=== PATIENT | male | born 1940 | race Caucasian/White ===

== ENCOUNTER 2022-08-12 13:46 | Outpatient (CLI) | payer MEDICARE, SELFPAY ==
--- OUTSIDE RECORDS SUMMARY | 2022-08-15 14:40 | XMS_ITS | Clinical Summary ---
:1940 Author Organization [facility] [place] [address] Care Team Providers Name Role Phone Reginald Daniels MD Primary Care Provider [phone] Allergies No known active allergies Medications Medication [...] Name Administration Dates Next Due COVID-19 vaccine (DocuSign 30mcg/0.3mL) PF, 1, 12/29/2020 MDV Influenza, Inactivated [...] Visit Reginald Daniels MD [address] [place] [address] (Wo rk) Health Maintenance Due [...] Type Group [employer] GOLD MR HU[employer] CHOICE [id number] 2020-Present [address] [address] PPO [employer] JONES [phone] Care Teams Photograph Tinter Relationship Specialty Start Date End Date Reginald Daniels MD PCP - General 06/25/[address] [place] [address]
== END 2022-08-12 13:47 | disposition home or self-care (01) ==
LOC: NFLDREF 08-15 14:38
PROVIDERS: PCP Family Medicine; Visit Provider Registered Nurse
DX: N39.0 Urinary tract infection, site not specified (principal)
CPT/HCPCS: 87086

== ENCOUNTER 2022-08-13 11:22 | Emergency (ER) | payer MEDICARE, SELFPAY ==
[2022-08-13 11:46] VITALS: BP 157/76; PULSE 68; RESP 18; TEMP 36.4; O2SAT 97; BMI 30.3
--- NOTE | 2022-08-13 13:32 | ED.GENADULT ---
HPI - General Adult General Chief complaint: Urogenital Problems, Male Stated complaint: Blood in urine Time Seen by Provider: 08/13/22 13:10 History of Present Illness HPI narrative: Patient is an 82 year old male who for the past week has had gross hematuria. He was seen in urgent care yesterday and had a UA which showed greater than 100 red cells, no white cells. He was started on Cipro at the time, and says he was told to come in if the bleeding got worse. He came in today because he feels like the bleeding is worse, he is now passing some clots. He does not take any blood thinners. He has not had any back or abdominal pain. He has not had any urinary retention. He has an appointment with his primary doctor Dr. Daniels next . He has not had any prostate problems that he is aware of. No history of renal or bladder cancer. Related Data Home Medications Medication Instructions Recorded Confirmed amlodipine 10 mg tablet 10 mg PO QDAY 08/12/22 08/12/22 aspirin 81 mg tablet,delayed 81 mg PO QDAY 08/12/22 08/12/22 release hydrochlorothiazide 25 mg tablet 25 mg PO QDAY 08/12/22 08/12/22 lisinopril 40 mg tablet 40 mg PO QDAY 08/12/22 08/12/22 Previous Rx's Medication Instructions Recorded ciprofloxacin HCl 500 mg tablet 500 mg PO BID 7 days #14 tabs 08/12/22 Allergies Allergy/AdvReac Type Severity Reaction Status Date / Time No Known Allergies Allergy Unverified 08/12/22 13:47 Review of Systems Status of ROS: Reports: 6 or more systems reviewed and unremarkable except as noted in History and below PFSH [facility] Social History Smoking Status: Never smoker Do you use any of these nicotine containing products: None Second hand tobacco smoke exposure: Yes How often do you have a drink containing alcohol: never How often do you have six or more drinks on one occasion: Never AUDIT-C Alcohol total score: 0 Non-prescribed substance use: denies use service: No Exam Narrative: Exam Narrative: Vital signs reviewed In general, an alert, well-appearing elderly male. Abdomen soft and nontender. Back: No CVA tenderness. Skin: Warm dry well perfused. Const: Vital Signs, click to edit/add: Vital Signs - 24 hr 08/13/22 11:46 Temperature 97.6 F Pulse Rate [Pulse Oximeter] 68 Respiratory Rate 18 Blood Pressure [Ri ght Upper Arm] 157/76 H Pulse Oximetry 97 Oxygen Delivery Me thod Room Air Documenting provider has reviewed patient's vital signs: yes Course Course Hospital Course: We had a long chat about his symptoms. I reviewed his UA from yesterday and again today. He does not have any white blood cells, he was started on Cipro yesterday and I think overall he really does not need to be on an antibiotic. I think the risks of being on Cipro outweigh any benefit. I have suggested that he discontinue that medication. They did do a urine culture yesterday, and on the off chance that he develops urinary symptoms and the urine culture grows out a bacteria we can address it at that time. We discussed that there is not really a specific treatment for this at this time. If he develops urinary retention we will address that as needed. I offered imaging in the form of CT scan if he wanted to do that today, but he is comfortable holding off until he sees Dr. Daniels and likely Urology. I think that is reasonable. He should return if he develops urinary retention, otherwise follow-up with Dr. Daniels. Vital Signs Vital signs: Initial Vital Signs Temperature 97.6 F 08/13/22 11:46 Temperature Source Temporal Artery Scan 08/13/22 11:46 Pulse Rate 68 08/13/22 11:46 Respiratory Rate 18 08/13/22 11:46 Blood Pressure 157/76 H 08/13/22 11:46 Blood Pressure Mean 103 08/13/22 11:46 Blood Pressure Position Supine 08/13/22 11:46 Pulse Oximetry 97 08/13/22 11:46 Oxygen Delivery Method 08/13/22 11:46 Vital Signs Temperature 97.6 F 08/13/22 11:46 Pulse Rate 68 08/13/22 11:46 Respiratory Rate 18 08/13/22 11:46 Blood Pressure 157/76 H 08/13/22 11:46 Pulse Oximetry 97 08/13/22 11:46 Oxygen Delivery Method 08/13/22 11:46 Temperature 97.6 F 08/13/22 11:46 Pulse Rate 68 08/13/22 11:46 Respiratory Rate 18 08/13/22 11:46 Blood Pressure 157/76 H 08/13/22 11:46 Pulse Oximetry 97 08/13/22 11:46 Oxygen Delivery Method 08/13/22 11:46 Medical Decision Making Lab Data Labs: Lab Results 08/13/22 Range/Units 13:05 Urine Color Red A (Yellow) Urine Appearance Turbid A (Clear) Urine pH 6.5 (5.0-8.5) Ur Specific [place] 1.015 (1.000-1.030) Urine Protein 3+ A (Negative) Urine Glucose (UA) Negative (Negative) Urine Ketones Negative (Negative) Urine Blood 3+ A (Negative) Urine Nitrite Negative (Negative) Urine Bilirubin Negative (Negative) Urine Urobilinogen 0.2 (0.2-1.0) Ur Leukocyte Esterase Negative (Negative) Urine RBC >100 A (0-2) Urine WBC 0-2 (0-5) Ur Squamous Epith Cells None (None-Few) Urine Bacteria None (None) Discharge Plan Discharge Clinical Impression: Painless hematuria Patient Disposition: Home, Self-Care Condition: Stable Instructions: Hematuria (ED) Additional Instructions: Follow-up with Dr. Daniels as planned. I would recommend that you discontinue the Cipro for now based on yesterday's urinalysis. The UA from today is still pending, if I feel differently after seeing today's results I will call you. Make sure to stay well hydrated. If you have problems with urinary retention, return to the ER. Prescriptions: No Action lisinopril 40 mg tablet 40 mg PO QDAY hydrochlorothiazide 25 mg tablet 25 mg PO QDAY amlodipine 10 mg tablet 10 mg PO QDAY aspirin 81 mg tablet,delayed release (DR/EC) 81 mg PO QDAY ciprofloxacin HCl 500 mg tablet 500 mg PO BID 7 Days Qty: 14 0RF Follow Up/Referrals: Reginald Daniels MD [Primary Care Provider] - Stand Alone Forms: [employer] Info Instructions
--- OUTSIDE RECORDS SUMMARY | 2022-08-13 13:42 | XMS_ITS | Clinical Summary ---
:1940 Author Organization [facility] [place] [address] Care Team Providers Name Role Phone Reginald Daniels MD Primary Care Provider [phone] Allergies No known active allergies Medications Medication Sig Dispensed Refills Start Date End Date Status ASPIRIN 325 MG TAB, take 1 po 0 06/25/2008 Active DELAYED RELEASE daily Cholecalciferol, Vitamin Take 1 0 04/25/2014 Active D3, (VITAMIN D-3) 2,000 tablet by unit tablet mouth once daily. zinc 15 mg tablet Take 15 mg 0 04/25/2014 Active by mouth 2 times daily. omeprazole (PRILOSEC) 10 Take 1 0 11/30/2015 Active mg capsule capsule by mouth once daily before a meal. amLODIPine (NORVASC) 10 TAKE ONE 30 Tablet 0 08/10/2022 Active mg tabletIndications: TABLET BY Hypertension, MOUTH EVERY unspecified type DAY lisinopriL (PRINIVIL; TAKE ONE 30 Tablet 0 08/10/2022 Active ZESTRIL) 40 mg TABLET BY tabletIndications: MOUTH EVERY Hypertension, DAY unspecified type hydroCHLOROthiazide TAKE ONE 30 Tablet 0 08/10/2022 Active (HCTZ) 25 mg TABLET BY tabletIndications: MOUTH EVERY Hypertension, DAY unspecified type amLODIPine (NORVASC) 10 Take 1 90 Tablet 3 08/06/202108/10 Discontinued mg tabletIndications: Tablet (10 22 Hypertension, mg) by mouth unspecified type once daily. hydroCHLOROthiazide Take 1 90 Tablet 3 08/06/2021 08/10/20 Discontinued (HCTZ) 25 mg Tablet (25 22 tabletIndications: mg) by mouth Hypertension, once daily. unspecified type lisinopriL (PRINIVIL; Take 1 90 Tablet 3 08/06/2021 0 Discontinued ZESTRIL) 40 mg Tablet (40 22 tabletIndications: mg) by mouth Hypertension, once daily. 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 Impaired fasting glucose Resolved Problems Problem Noted Date Resolved Date Stress / with dementia 07/19/2017 08/05/2020 Vitamin D insufficiency 03/18/2015 08/05/2019 Encounters Date Type Specialty Care Team Description 08/09/2022 Refill Reginald Daniels MD Refill Request (Amlodipine, Lisinopril, Hydrochlorothia zide) from Last 3 Months Immunizations Name Administration Dates Next Due COVID-19 vaccine (Equidate 30mcg/0.3mL) PF, 1, 12/29/2020 MDV Influenza, Inactivated AIIV4 (Age 65+ Years) Preserv 021, 08/05/2020 Free Influenza, Inactivated IIV3 (Age 65+ Years) Preserv 08/05/20 19, 08/01/2018 Free Pneumococcal Poly,23-Valent (Pneumovax) 08/05/2019 Pneumococcal conj 13-Valent (Prevnar 13) 08/01/2018 Zoster (Shingrix-RZV, recombinant) 09/28/2020, 07/23/2020 Family History Medical History Relation Name Comments Good Health Father Good Health Mother Cancer-colon Neg. 1 Cancer-prostate Neg. 2 Diabetes Neg. 3 Relation Name Status Comments Father Mother Neg. 1 Neg. 2 Neg. 3 Social History Tobacco Use Types Packs/Day Years Used Date Former Smoker Quit: 11/13/18 78 Smokeless Tobacco: Never Used Tobacco Cessation: Counseling Given: Yes Alcohol Use Standard Drinks/Week Comments Yes 0 (1 standard drink = 0.6 oz pure alcoho l) occasional Alcohol Habits Answer Date Recorded How often do you have a drink containing alcohol? Not asked How many drinks containing alcohol do you have on a typical Not asked day when you are drinking? How often do you have six or more drinks on one occasion? No t asked Comment: occasional 06/25/2008 Sex Assigned at Date Recorded Not on file Obstetrics History Last Filed Vital Signs Vital Sign Reading Time Taken Comments Blood Pressure 153/82 08/06/2021 7:58 AM CDT Pulse 72 08/06/2021 7:58 AM CDT Temperature 36.8 ??C (98.2 ??F) 08/05/2020 7:56 AM CDT Respiratory Rate - - Oxygen Saturation 98% 08/06/2021 7:58 AM CDT Inhaled Oxygen Concentration - - Weight 94.9 kg (209 lb 3.2 oz) 08/06/2021 7:58 AM CDT Height 177.8 cm (5' 10) 08/06/2021 7:58 AM CDT Body Mass Index 30.02 08/06/2021 7:58 AM CDT Plan of Treatment Upcoming Encounters Date Type Specialty Care Team Description 08/18/2022 Office Visit Reginald Daniels MD [address] [place] [address] (Wo rk) Health Maintenance Due Date Last Done Comments Tdap 01/25/1951 COVID-19 vaccine series (3 - 06/21/2021 01/19/2021, 021 Booster for Pfizer series) Tetanus booster 11/22/2021 11/22/2011 (Declined) Influenza for age 65+ 07/14/2022 08/06/2021, 08/05/2020, 08/05/2019, Additional history exists BMI (ht and wt on same day) for 08/06/2022 08/06/2021, 07/15, age 18+ 08/05/2019, Additional history exists Depression screening for age 12+ 08/06/2022 08/06/2021, , 07/19/2017, Additional history exists Medicare Wellness for age 65+ 08/06/2022 08/06/2021, 2016, 01/18/2013 Pneumococcal series for age 65+ Completed 08/05/2019, 07/14 Zoster (shingles) series for age Completed 09/28/2020, 08/2020 50+ Results Not on filefrom Last 3 Months Insurance Payer Benefit Plan / Subscriber ID Effective Dates Phone Addre ss Type Group HU[employer] GOLD MR HU[employer]NA CHOICE [id number] 2020-Present [address] [address] PPO STEFF[employer]IE JONES [phone] Care Teams Furniture 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
[2022-08-13 14:11] LABS: Appearance Urine Turbid (Clear); Bilirubin Urine Negative (Negative); Blood Urine 3+ (Negative); Color Urine Red (Yellow); Glucose Urine Negative (Negative); Ketones Urine Negative (Negative); Leukocyte Esterase Urine Negative (Negative); Nitrite Urine Negative (Negative); Protein Urine 3+ (Negative); Specific Gravity Urine 1.015 (1.000-1.030); Urobilinogen Urine 0.2 (0.2-1.0); pH Urine 6.5 (5.0-8.5)
[2022-08-13 14:12] LABS: RBC Urine >100 (0-2); WBC Urine 0-2 (0-5)
== END 2022-08-13 14:01 | disposition home or self-care (01) ==
LOC: ED 13:40
PROVIDERS: Emergency Provider Emergency Medicine; PCP Family Medicine
DX: R31.0 Gross hematuria (principal)
CPT/HCPCS: 81001; 87086; 99283

== ENCOUNTER 2022-12-23 09:55 | Emergency (ER) | payer MEDICARE, SELFPAY ==
[2022-12-23 10:00] VITALS: BP 129/77; PULSE 91; RESP 18; TEMP 36.4; O2SAT 97; BMI 28.4
--- NOTE | 2022-12-23 10:55 | ED.NURSE ---
Accessed the [facility] and was easy able to draw the labs and waste per protocol. infusing 500cc of 0.9% normal saline bolus now. Bladder scanner completed shows only 5 cc after 4 attempts. given a urinal at bedside and is aware needs to collect a urine sample.
[2022-12-23 11:07] LABS: Lactate* 0.5 mmol/L (0.5-1.9)
[2022-12-23 11:09] LABS: Hematocrit 29.8 % (37.0-53.0); Hemoglobin* 10.1 gm/dL (13.5-17.5); Immature Granulocytes Pct Auto 0.4 %; Lymphocytes Percent Auto 42.9 % (20-44); Mean Corpuscular HGB Conc 34 gm/dL (32-36); Mean Corpuscular Hemoglobin 32 pg (26-34); Mean Corpuscular Volume 96 fL (80-100); Monocytes Percent Auto 2.2 % (0.0-11.0); Neutrophils Percent Auto 54.5 % (42.0-72.0); Platelet Count* 95 K/uL (140-440); RDW Coefficient of Variation % 12.1 % (11.5-15.5); Red Blood Count 3.12 m/uL (4.30-5.90); White Blood Count* 2.73 K/uL (4.50-11.00)
[2022-12-23 11:13] LABS: Slide Review Reflex No
--- NOTE | 2022-12-23 11:14 | ED.GENADULT ---
HPI - General Adult General Chief complaint: Nausea/Vomiting Stated complaint: Vomiting, weak, dizzy Time Seen by Provider: 12/23/22 10:13 Source: patient Mode of arrival: ambulatory Limitations: no limitations History of Present Illness HPI narrative: 82-year-old male coming in today with nausea and vomiting. Patient is getting chemotherapy for bladder cancer and his last session was 1 week ago. Vomiting and nausea started this morning. Patient states that he can't even look at water. He states he has vomited a couple of times today and also had 2 episodes of watery diarrhea. He denies chest pain. He does have chronic suprapubic discomfort which is not new for him since his diagnosis of cancer. He does urinate a little bit every 20 minutes or so and this is not unusual. He was supposed to get another session of chemotherapy today but he was sent to the ER for evaluation. He denies headache, dizziness. Related Data Home Medications Medication Instructions Recorded Confirmed amlodipine 10 mg tablet 10 mg PO QDAY 08/12/22 08/12/22 aspirin 81 mg tablet,delayed 81 mg PO QDAY 08/12/22 08/12/22 release hydrochlorothiazide 25 mg tablet 25 mg PO QDAY 08/12/22 08/12/22 lisinopril 40 mg tablet 40 mg PO QDAY 08/12/22 08/12/22 Previous Rx's Medication Instructions Recorded ondansetron HCl 4 mg tablet 4 mg PO TID PRN nausea and 12/23/22 vomiting #10 tabs Allergies Allergy/AdvReac Type Severity Reaction Status Date / Time No Known Allergies Allergy Unverified 08/12/22 13:47 Review of Systems Status of ROS: Reports: 10 or more systems reviewed and unremarkable except as noted in History and below [facility] Social History Smoking Status: Never smoker Do you use any of these nicotine containing products: None Second hand tobacco smoke exposure: Yes How often do you have a drink containing alcohol: never How often do you have six or more drinks on one occasion: Never AUDIT-C Alcohol total score: 0 Non-prescribed substance use: denies use service: No Exam Narrative: Exam Narrative: Well-nourished well-developed patient in no acute distress. Alert and oriented. Answers questions appropriately. Mood and affect are appropriate. Thoughts are goal oriented and rational. No tangential or magical thinking noted. Patient speaks in full sentences without needing to catch their breath. HEENT: Normocephalic atraumatic. Pupils are equally round reactive to light. Extraocular muscles are intact. Conjunctivae are moist without any icterus noted. Moist mucous membranes. Posterior pharynx is normal. Neck is soft without any lymphadenopathy or thyromegaly. No masses are appreciated. Cardiovascular: Heart is regular rate and rhythm S1 and S2 are present without any murmurs. Lungs: Clear to auscultation bilaterally no wheezes rhonchi or rales are appreciated. Patient takes deep breaths without any discomfort. Abdomen: Soft and nondistended. Slightly protuberant. hyperactive bowel sounds. Mild suprapubic discomfort. Extremities: Bilateral lower extremities are without edema. Skin: Well perfused without any obvious rashes. Const: Vital Signs, click to edit/add: Vital Signs - 24 hr 12/23/22 10:00 Temperature 97.6 F Pulse Rate [Right Pulse Oximeter] 91 Respiratory Rate 18 Blood Pressure [Ri ght Upper Arm] 129/77 Pulse Oximetry 97 Oxygen Delivery Me thod Room Air Course Course Hospital Course: Patient received 500 mL normal saline and Zofran and felt significantly better. He had no vomiting or diarrhea while he was in the ER today. His blood work did show pancytopenia, urinalysis was not too different from his previous UAs, he did have wbc's present today however. CRP was also elevated at 5.7. Creatinine also slightly elevated, I do not have a previous 1 to compare it to. Vital Signs Vital signs: Initial Vital Signs Temperature 97.6 F 12/23/22 10:00 Temperature Source Temporal Artery Scan 12/23/22 10:00 Pulse Rate 91 12/23/22 10:00 Respiratory Rate 18 12/23/22 10:00 Blood Pressure 129/77 12/23/22 10:00 Blood Pressure Mean 94 12/23/22 10:00 Blood Pressure Position Sitting 12/23/22 10:00 Pulse Oximetry 97 12/23/22 10:00 Oxygen Delivery Method 12/23/22 10:00 Vital Signs Temperature 97.6 F 12/23/22 10:00 Pulse Rate 91 12/23/22 10:00 Respiratory Rate 18 12/23/22 10:00 Blood Pressure 129/77 12/23/22 10:00 Pulse Oximetry 97 12/23/22 10:00 Oxygen Delivery Method 12/23/22 10:00 Temperature 97.6 F 12/23/22 10:00 Pulse Rate 91 12/23/22 10:00 Respiratory Rate 18 12/23/22 10:00 Blood Pressure 129/77 12/23/22 10:00 Pulse Oximetry 97 12/23/22 10:00 Oxygen Delivery Method 12/23/22 10:00 Medical Decision Making [facility] Narrative Medical decision making narrative: 82-year-old male, presenting with nausea, vomiting and diarrhea, currently undergoing chemotherapy for bladder cancer. Feeling significantly better after fluids and Zofran. Certainly this could represent a gastroenteritis verses UTI versus side effects from chemotherapy. At this time patient will be sent home with follow-up recommendation. If his symptoms get worse I do want him to return to the ER. Will also wait for his urine culture to come back, if it is positive will go ahead and start him on antibiotic treatment. Patient and his children were agreeable with this plan. Lastly, there is confusion about when he is supposed take his medications. His daughter states that she will attempt to handle this going forward. Lab Data Lab results reviewed: Yes I reviewed the patient's lab results Labs: Lab Results 12/23/22 12/23/22 12/23/22 Range/Units 10:55 10:55 10:55 WBC 2.73 L (4.50-11.00) K/uL RBC 3.12 L (4.30-5.90) m/uL Hgb 10.1 L (13.5-17.5) gm/dL Hct 29.8 L (37.0-53.0) % MCV 96 (80-100) fL MCH 32 (26-34) pg MCHC 34 (32-36) gm/dL RDW Coeff of Venkata 12.1 (11.5-15.5) % Plt Count 95 L (140-440) K/uL Neut % (Auto) 54.5 (42.0-72.0) % Lymph % (Auto) 42.9 (20-44) % Johnston % (Auto) 2.2 (0.0-11.0) % Eos % (Auto) 0.0 (0.0-7.0) % Baso % (Auto) 0.0 (0.0-3.0) % Neut # (Auto) 1.50 L (1.7-7.0) K/uL Lymph # (Auto) 1.20 (0.90-2.90) K/uL Johnston # (Auto) 0.10 (0.00-0.90) K/UL Eos # (Auto) 0.00 (0.00-0.50) K/uL Baso # (Auto) 0.00 (0.00-0.30) K/uL Sodium 135 (135-149) mmol/L Potassium 4.7 (3.6-5.1) mmol/L Chloride 106 (96-114) mmol/L Carbon Dioxide 25 (20-32) mmol/L BUN 35 H (7-30) mg/dL Creatinine 1.7 H (0.5-1.5) mg/dL Estimated Creat Clear 34.59 Estimated GFR 40 ml/min Glucose 110 (60-115) mg/dL Lactate 0.5 (0.5-1.9) mmol/L Calcium 9.1 (8.4-10.6) mg/dL Total Bilirubin 0.5 (0.1-1.5) mg/dL Direct Bilirubin 0.2 (0.0-0.5) mg/dL AST 19 (12-35) U/L ALT 24 (4-50) U/L Alkaline Phosphatase 68 (40-150) U/L C-Reactive Protein 5.7 H (0.5-1.0) mg/dL Total Protein 6.8 (6.0-8.3) g/dL Albumin 4.0 (3.3-5.0) g/dL Lipase 143 (23-300) U/L Urine Color (Yellow) Urine Appearance (Clear) Urine pH (5.0-8.5) Ur Specific [place] (1.000-1.030) Urine Protein (Negative) Urine Glucose (UA) (Negative) Urine Ketones (Negative) Urine Blood (Negative) Urine Nitrite (Negative) Urine Bilirubin (Negative) Urine Urobilinogen (0.2-1.0) Ur Leukocyte Esterase (Negative) Urine RBC (0-2) Urine WBC (0-5) Ur Squamous Epith Cells (None-Few) Urine Bacteria (None) SARS-CoV-2 (PCR) (Negative) Influenza Type A (PCR) (Negative) Influenza Type B (PCR) (Negative) 12/23/22 12/23/22 Range/Units 10:55 12:12 WBC (4.50-11.00) K/uL RBC (4.30-5.90) m/uL Hgb (13.5-17.5) gm/dL Hct (37.0-53.0) % MCV (80-100) fL MCH (26-34) pg MCHC (32-36) gm/dL RDW Coeff of Venkata (11.5-15.5) % Plt Count (140-440) K/uL Neut % (Auto) (42.0-72.0) % Lymph % (Auto) (20-44) % [place] % (Auto) (0.0-11.0) % Eos % (Auto) (0.0-7.0) % Baso % (Auto) (0.0-3.0) % Neut # (Auto) (1.7-7.0) K/uL Lymph # (Auto) (0.90-2.90) K/uL [place] # (Auto) (0.00-0.90) K/UL Eos # (Auto) (0.00-0.50) K/uL Baso # (Auto) (0.00-0.30) K/uL Sodium (135-149) mmol/L Potassium (3.6-5.1) mmol/L Chloride (96-114) mmol/L Carbon Dioxide (20-32) mmol/L BUN (7-30) mg/dL Creatinine (0.5-1.5) mg/dL Estimated Creat Clear Estimated GFR ml/min Glucose (60-115) mg/dL Lactate (0.5-1.9) mmol/L Calcium (8.4-10.6) mg/dL Total Bilirubin (0.1-1.5) mg/dL Direct Bilirubin (0.0-0.5) mg/dL AST (12-35) U/L ALT (4-50) U/L Alkaline Phosphatase (40-150) U/L C-Reactive Protein (0.5-1.0) mg/dL Total Protein (6.0-8.3) g/dL Albumin (3.3-5.0) g/dL Lipase (23-300) U/L Urine Color [place]reen A (Yellow) Urine Appearance Slightly Cloudy A (Clear) Urine pH 5.5 (5.0-8.5) Ur Specific [place] >= 1.030 (1.000-1.030) Urine Protein 3+ A (Negative) Urine Glucose (UA) Negative (Negative) Urine Ketones Negative (Negative) Urine Blood 3+ A (Negative) Urine Nitrite Negative (Negative) Urine Bilirubin Negative (Negative) Urine Urobilinogen 0.2 (0.2-1.0) Ur Leukocyte Esterase Negative (Negative) Urine RBC 2-5 A (0-2) Urine WBC 50-100 A (0-5) Ur Squamous Epith Cells Few (None-Few) Urine Bacteria Moderate A (None) SARS-CoV-2 (PCR) Negative SARS-CoV-2 (Negative) Influenza Type A (PCR) Negative PCR FLU A (Negative) Influenza Type B (PCR) Negative PCR FLU B (Negative) ECG Data Attestation: I personally reviewed and interpreted this ECG as follows: (Normal sinus rhythm with sinus arrhythmia, pulse 77) Discharge Plan Discharge Clinical Impression: Gastroenteritis Patient Disposition: Home w/ Parent or Adult Condition: Improved Prescriptions: New ondansetron HCl 4 mg tablet 4 mg PO TID PRN (Reason: nausea and vomiting) Qty: 10 0RF No Action lisinopril 40 mg tablet 40 mg PO QDAY hydrochlorothiazide 25 mg tablet 25 mg PO QDAY amlodipine 10 mg tablet 10 mg PO QDAY aspirin 81 mg tablet,delayed release (DR/EC) 81 mg PO QDAY Follow Up/Referrals: Reginald Daniels MD [Primary Care Provider] - Stand Alone Forms: [employer] Info Instructions
[2022-12-23] MEDS: 0.9 % SODIUM CHLORIDE 500 ML 500 ML IV (11:19)
[2022-12-23] MEDS: ONDANSETRON 2 MG/ML inj 4 MG IVP (11:22)
[2022-12-23 11:23] LABS: Chloride* 106 mmol/L (96-114); Sodium* 135 mmol/L (135-149)
[2022-12-23 11:24] LABS: Potassium* 4.7 mmol/L (3.6-5.1)
[2022-12-23 11:25] LABS: Creatinine* 1.7 mg/dL (0.5-1.5); Est. Creatinine Clearance* 34.59; Estimated Glomerular Filt Rate 40 ml/min
[2022-12-23 11:26] LABS: Aspartate Amino Transferase* 19 U/L (12-35); Bilirubin Direct* 0.2 mg/dL (0.0-0.5); Bilirubin Total* 0.5 mg/dL (0.1-1.5); Carbon Dioxide* 25 mmol/L (20-32); Total Protein* 6.8 g/dL (6.0-8.3)
[2022-12-23 11:27] LABS: Alanine Aminotransferase* 24 U/L (4-50); Alkaline Phosphatase* 68 U/L (40-150); Blood Urea Nitrogen* 35 mg/dL (7-30); Calcium* 9.1 mg/dL (8.4-10.6); Glucose* 110 mg/dL (60-115); Lipase* 143 U/L (23-300)
[2022-12-23 11:29] LABS: C Reactive Protein* 5.7 mg/dL (0.5-1.0)
[2022-12-23 11:45] LABS: PCR FLU A Negative PCR FLU A (Negative); PCR FLU B Negative PCR FLU B (Negative)
[2022-12-23 11:55] LABS: SARS PCR* Negative SARS-CoV-2 (Negative)
[2022-12-23 12:24] LABS: Appearance Urine Slightly Cloudy (Clear); Bilirubin Urine Negative (Negative); Blood Urine 3+ (Negative); Color Urine Amber (Yellow); Glucose Urine Negative (Negative); Ketones Urine Negative (Negative); Leukocyte Esterase Urine Negative (Negative); Nitrite Urine Negative (Negative); Protein Urine 3+ (Negative); Specific Gravity Urine >= 1.030 (1.000-1.030); Urobilinogen Urine 0.2 (0.2-1.0); pH Urine 5.5 (5.0-8.5)
[2022-12-23 12:45] LABS: Bacteria Urine Moderate; Squamous Epithelial Cell Urine Few (None-Few); WBC Urine 50-100 (0-5)
[2022-12-23] MEDS: HEPARIN 500 UNIT/5 ML SYRINGE IVF (13:46)
== END 2022-12-23 13:48 | disposition home or self-care (01) ==
PROVIDERS: Emergency Provider Family Medicine; PCP Family Medicine
DX: K52.9 Noninfective gastroenteritis and colitis, unspecified (principal); C67.9 Malignant neoplasm of bladder, unspecified
CPT/HCPCS: 36415; 80048; 80076; 81001; 83605; 83690; 85025; 86140; 87086; 87631; 93005; 96374; 99284; J1642; J2405; J7120

== ENCOUNTER 2023-01-12 08:29 | Emergency (ER) | payer MEDICARE, SELFPAY ==
[2023-01-12 08:46] VITALS: BP 132/79; PULSE 90; RESP 14; TEMP 36.2; O2SAT 98; BMI 25.8
--- NOTE | 2023-01-12 09:13 | ED.GENADULT ---
HPI - General Adult General Time Seen by Provider: 09:13 Date Seen: 01/12/23 Chief complaint: Nausea/Vomiting Stated complaint: dehydrated, requesting fluids Time Seen by Provider: 01/12/23 09:13 Source: patient and RN notes reviewed Mode of arrival: ambulatory Limitations: no limitations History of Present Illness HPI narrative: Patient is an 82-year-old male coming in with nausea vomiting and dehydration and is a result of his chemotherapy for his bladder cancer. He had chemotherapy this past Monday. Started having nausea vomiting through the weekend, no vomiting today just nauseated. Cannot take in any orals. Does have Zofran at home and has tried it. He is scheduled to get chemotherapy tomorrow at [facility]. Next week they are planning to transition to get his chemotherapy here at [place]. The understand that they will be able to schedule some IV fluids through the [facility] is part of his treatment. He denies any pain, no fevers. There is no concern of any illness. He would like us to access his port for the fluids. Related Data Home Medications Medication Instructions Recorded Confirmed morphine 30 mg tablet,extended 30 mg PO Q12H PRN 01/12/23 01/12/23 release omeprazole 20 mg capsule,delayed 20 mg PO DAILY 01/12/23 01/12/23 release Previous Rx's Medication Instructions Recorded ondansetron HCl 4 mg tablet 4 mg PO TID PRN nausea and 12/23/22 vomiting #10 tabs Allergies Allergy/AdvReac Type Severity Reaction Status Date / Time No Known Allergies Allergy Verified 01/12/23 13:25 Review of Systems Status of ROS: Reports: 6 or more systems reviewed and unremarkable except as noted in History and below PFSH PFS Social History Smoking Status: Former smoker Do you use any of these nicotine containing products: None Second hand tobacco smoke exposure: Yes How often do you have a drink containing alcohol: monthly or less How often do you have six or more drinks on one occasion: Never AUDIT-C Alcohol total score: 1 Non-prescribed substance use: denies use service: No Exam Const: Vital Signs, click to edit/add: Vital Signs - 24 hr 01/12/23 08:46 Temperature 97.2 F L Pulse Rate [Pulse Oximeter] 90 Respiratory Rate 14 Blood Pressure [Ri ght Upper Arm] 132/79 Pulse Oximetry 98 Oxygen Delivery Me thod Room Air Documenting provider has reviewed patient's vital signs: yes Common normals: no apparent distress, average body habitus, oriented x3, no limitations and alert General appearance: cooperative, comfortable, well kempt and well developed Nutritional appearance: thin Other: This is an 82-year-old male whom is pleasant, looks like he does not feel the best but certainly is in no apparent distress. HENMT: Common normals: normocephalic, head/scalp atraumatic and hearing grossly normal bilaterally Head and scalp: normocephalic and atraumatic Other: Tongue and mucosa mildly dry but no lesions noted. Is able to speak in complete sentences voice is normal. Eye: Common normals: PERRL, EOMs intact bilaterally, conjunctivae normal and no scleral icterus Conjunctiva: conjunctiva(e) normal Pupil: PERRL Neck & C-Spine: Common normals: full ROM, no lymphadenopathy, supple, no meningeal signs, no JVD and thyroid normal Thyroid: thyroid normal Resp: Common normals: normal respiratory effort, no retractions, no use of accessory muscles and clear to auscultation bilaterally Auscultation: clear to auscultation bilaterally Cardio: Common normals: no JVD, regular rate, regular rhythm, S1 normal heart sound, S2 normal heart sound, no gallops, no clicks and no murmurs Rate: regular rate Rhythm: regular rhythm Heart sounds: S1 normal and S2 normal GI: Common normals: Normal to inspection, nondistended, normoactive bowel sounds present, soft to palpation, non-tender, no hepatosplenomegaly and no masses Palpation: soft and no hepatosplenomegaly Extremity: Common normals: no pedal edema Neuro: Common normals: oriented x3 Sensorium/orientation: alert Meningeal signs: no meningeal signs Psych: Appearance: well kempt Course Course Hospital Course: This seems to be dehydration from complications of his chemotherapy. Will check electrolytes and complement of labs. We will access his port, initiate a L of normal saline and 4 mg IV Zofran. Will consider further fluids based on labs and his response. Rule out electrolyte abnormalities on his laboratory evaluation. Do not feel that any imaging is necessary at this time but would reconsider this if we find any concerns with his labs or any changes in his status while he is here. Reevaluation(s) Reevaluation #1: Patient has completed his 1 L of IV fluids. Is still feeling some nausea. We will re-dose the Zofran 4 mg IV, if that is not enough can add in some Ativan. Will also give him a bit more fluids. Did urinate but it was dark red with blood and clots. Likely need more fluids. Have reviewed with him that his hemoglobin is at 8. I am sure they will adjust his hemoglobin and probably due Neulasta as they had done before per report. Time: 11:25 Vital Signs Vital signs: Initial Vital Signs Temperature 97.2 F L 01/12/23 08:46 Temperature Source Temporal Artery Scan 01/12/23 08:46 Pulse Rate 90 01/12/23 08:46 Pulse Rhythm 01/12/23 08:46 Respiratory Rate 14 01/12/23 08:46 Blood Pressure 132/79 01/12/23 08:46 Blood Pressure Mean 96 01/12/23 08:46 Blood Pressure Position Sitting 01/12/23 08:46 Pulse Oximetry 98 01/12/23 08:46 Oxygen Delivery Method 01/12/23 08:46 Vital Signs Temperature 97.2 F L 01/12/23 08:46 Pulse Rate 90 01/12/23 08:46 Respiratory Rate 14 01/12/23 08:46 Blood Pressure 132/79 01/12/23 08:46 Pulse Oximetry 98 01/12/23 08:46 Oxygen Delivery Method 01/12/23 08:46 Temperature 97.2 F L 01/12/23 13:23 Pulse Rate 82 01/12/23 13:23 Respiratory Rate 14 01/12/23 13:23 Blood Pressure 121/78 01/12/23 13:23 Pulse Oximetry 97 01/12/23 13:00 Oxygen Delivery Method 01/12/23 08:46 Medical Decision Making Lab Data Labs: Lab Results 01/12/23 01/12/23 01/12/23 Range/Units 10:10 10:10 10:10 WBC 4.84 (4.50-11.00) K/uL RBC 2.43 L (4.30-5.90) m/uL Hgb 8.0 L (13.5-17.5) gm/dL Hct 23.5 L (37.0-53.0) % MCV 97 (80-100) fL MCH 33 (26-34) pg MCHC 34 (32-36) gm/dL RDW Coeff of Venkata 15.2 (11.5-15.5) % Plt Count 158 (140-440) K/uL Neut % (Auto) 56.7 (42.0-72.0) % Lymph % (Auto) 38.4 (20-44) % Toombs % (Auto) 4.3 (0.0-11.0) % Eos % (Auto) 0.2 (0.0-7.0) % Baso % (Auto) 0.0 (0.0-3.0) % Neut # (Auto) 2.74 (1.7-7.0) K/uL Lymph # (Auto) 1.86 (0.90-2.90) K/uL Toombs # (Auto) 0.20 (0.00-0.90) K/UL Eos # (Auto) 0.01 (0.00-0.50) K/uL Baso # (Auto) 0.00 (0.00-0.30) K/uL Sodium 137 (135-149) mmol/L Potassium 4.0 (3.6-5.1) mmol/L Chloride 106 (96-114) mmol/L Carbon Dioxide 27 (20-32) mmol/L BUN 16 (7-30) mg/dL Creatinine 1.5 (0.5-1.5) mg/dL Estimated Creat Clear 39.20 Estimated GFR 46 ml/min Glucose 101 (60-115) mg/dL Lactate (0.5-1.9) mmol/L Calcium 8.7 (8.4-10.6) mg/dL Magnesium 2.3 (1.5-2.6) mg/dL Total Bilirubin 0.6 (0.1-1.5) mg/dL AST 19 (12-35) U/L ALT 20 (4-50) U/L Alkaline Phosphatase 72 (40-150) U/L Total Protein 5.9 L (6.0-8.3) g/dL Albumin 3.5 (3.3-5.0) g/dL 01/12/23 Range/Units 10:10 WBC (4.50-11.00) K/uL RBC (4.30-5.90) m/uL Hgb (13.5-17.5) gm/dL Hct (37.0-53.0) % MCV (80-100) fL MCH (26-34) pg MCHC (32-36) gm/dL RDW Coeff of Venkata (11.5-15.5) % Plt Count (140-440) K/uL Neut % (Auto) (42.0-72.0) % Lymph % (Auto) (20-44) % Toombs % (Auto) (0.0-11.0) % Eos % (Auto) (0.0-7.0) % Baso % (Auto) (0.0-3.0) % Neut # (Auto) (1.7-7.0) K/uL Lymph # (Auto) (0.90-2.90) K/uL Toombs # (Auto) (0.00-0.90) K/UL Eos # (Auto) (0.00-0.50) K/uL Baso # (Auto) (0.00-0.30) K/uL Sodium (135-149) mmol/L Potassium (3.6-5.1) mmol/L Chloride (96-114) mmol/L Carbon Dioxide (20-32) mmol/L BUN (7-30) mg/dL Creatinine (0.5-1.5) mg/dL Estimated Creat Clear Estimated GFR ml/min Glucose (60-115) mg/dL Lactate 0.6 (0.5-1.9) mmol/L Calcium (8.4-10.6) mg/dL Magnesium (1.5-2.6) mg/dL Total Bilirubin (0.1-1.5) mg/dL AST (12-35) U/L ALT (4-50) U/L Alkaline Phosphatase (40-150) U/L Total Protein (6.0-8.3) g/dL Albumin (3.3-5.0) g/dL Discharge Plan Discharge Clinical Impression: Chemotherapy induced nausea and vomiting Patient Disposition: Home, Self-Care Condition: Improved Instructions: Chemo Induced Nausea and Vomiting (ED) Additional Instructions: Follow-up with oncology tomorrow as planned. Let them know your hemoglobin here was 8 today, I am sure they will be read drawing this prior to any further chemotherapy. Recommend talking to them about further options beyond Zofran for acute nausea and vomiting induced by chemotherapy. Hopefully, with the IV fluids today in the IV Zofran you will feel a bit better. Can continue with oral Zofran if any rebound nausea or vomiting at home later. Once you are established with our [facility], they will be able to do IV fluids and will not have to be in the ER for the solitary purpose of IV fluids. Activity Level: Activity as Tolerated Discharge Diet: Regular Prescriptions: No Action ondansetron HCl 4 mg tablet 4 mg PO TID PRN (Reason: nausea and vomiting) Qty: 10 0RF omeprazole 20 mg capsule,delayed release(DR/EC) 20 mg PO DAILY morphine 30 mg tablet extended release 30 mg PO Q12H PRN Follow Up/Referrals: Reginald Daniels MD [Primary Care Provider] - Stand Alone Forms: [facility] Info Instructions
[2023-01-12] MEDS: ONDANSETRON 2 MG/ML inj 4 MG IVP ×2 (10:15→11:40)
[2023-01-12] MEDS: 0.9 % SODIUM CHLORIDE 1000 ml 1,000 ML IV (10:15)
[2023-01-12 10:21] LABS: Eosinophils Absolute Auto 0.01 K/uL (0.00-0.50); Eosinophils Percent Auto 0.2 % (0.0-7.0); Hematocrit 23.5 % (37.0-53.0); Immature Granulocytes Abs Auto 0.02 K/uL (0.00-0.30); Immature Granulocytes Pct Auto 0.4 %; Lactate* 0.6 mmol/L (0.5-1.9); Lymphocytes Absolute Auto 1.86 K/uL (0.90-2.90); Lymphocytes Percent Auto 38.4 % (20-44); Mean Corpuscular HGB Conc 34 gm/dL (32-36); Mean Corpuscular Hemoglobin 33 pg (26-34); Mean Corpuscular Volume 97 fL (80-100); Monocytes Percent Auto 4.3 % (0.0-11.0); Neutrophils Absolute Auto 2.74 K/uL (1.7-7.0); Neutrophils Percent Auto 56.7 % (42.0-72.0); Platelet Count* 158 K/uL (140-440); RDW Coefficient of Variation % 15.2 % (11.5-15.5); Red Blood Count 2.43 m/uL (4.30-5.90); White Blood Count* 4.84 K/uL (4.50-11.00)
[2023-01-12 10:24] LABS: Slide Review Reflex No
[2023-01-12 10:37] LABS: Albumin* 3.5 g/dL (3.3-5.0); Chloride* 106 mmol/L (96-114); Sodium* 137 mmol/L (135-149)
[2023-01-12 10:39] LABS: Bilirubin Total* 0.6 mg/dL (0.1-1.5); Carbon Dioxide* 27 mmol/L (20-32); Creatinine* 1.5 mg/dL (0.5-1.5); Estimated Glomerular Filt Rate 46 ml/min; Magnesium* 2.3 mg/dL (1.5-2.6)
[2023-01-12 10:40] LABS: Alanine Aminotransferase* 20 U/L (4-50); Alkaline Phosphatase* 72 U/L (40-150); Aspartate Amino Transferase* 19 U/L (12-35); Blood Urea Nitrogen* 16 mg/dL (7-30); Calcium* 8.7 mg/dL (8.4-10.6); Glucose* 101 mg/dL (60-115); Total Protein* 5.9 g/dL (6.0-8.3)
[2023-01-12] MEDS: LACTATED RINGERS 1000 ML 500 ML IV (11:40)
[2023-01-12] MEDS: LORazepam 1 MG TABLET PO (12:55)
[2023-01-12 13:00] VITALS: BP 121/78; PULSE 82; RESP 14; O2SAT 97
[2023-01-12] MEDS: HEPARIN 500 UNIT/5 ML SYRINGE IVF (13:20)
[2023-01-12 13:23] VITALS: BP 121/78; PULSE 82; RESP 14; TEMP 36.2
== END 2023-01-12 13:23 | disposition home or self-care (01) ==
PROVIDERS: Emergency Provider Family Medicine; PCP Family Medicine
DX: R11.2 Nausea with vomiting, unspecified (principal)
CPT/HCPCS: 36415; 80053; 83605; 83735; 85025; 96374; 96375; 96376; 99284; A9270; J1642; J2405; J7030; J7120

== ENCOUNTER 2023-02-07 09:27 | Emergency (ER) | payer MEDICARE, SELFPAY ==
[2023-02-07] VITALS (11 sets, daily range): BP systolic 161–174; BP diastolic 75–81; PULSE 65–80; RESP 16; TEMP 36.5; O2SAT 95–100; BMI 26.5
--- NOTE | 2023-02-07 11:35 | PC.NURSE ---
attempted to place 3 way catheter for CBI, unable to advance catheter more than approx 1in into penis and met resistance, Dr eLon to bedside and also attempts insertion, unable, Dr Leon will call urology for consult
[2023-02-07] MEDS: 0.9 % SODIUM CHLORIDE 1000 ml 1,000 ML 35 ML IV (11:40)
[2023-02-07] MEDS: MORPHINE 4 MG/ML INJ IVP ×2 (11:40→13:07)
[2023-02-07] MEDS: lidocaine HCL 2 % JELLY (TOP) STERILE 6 ML UR (11:55)
--- NOTE | 2023-02-07 12:54 | CRLHL7_ITS ---
For Patients: As a result of the Cures Act, medical imaging exams and procedure reports are released immediately into your electronic medical record. You may view this report before your referring provider. If you have questions, please contact your health care provider. INDICATION: Bladder cancer; hematuria; clots. Comparison : None. TECHNIQUE: CT abdomen and pelvis with intravenous contrast; coronal and sagittal reformats. FINDINGS: A 1.8 cm pleural-based necrotic nodule left lower lobe posterior medial; metastatic deposit. Multiple other pulmonary nodules both lung bases. No focal hepatic or splenic pathology. Mild splenomegaly. No pancreatic pathology. Distended gallbladder without any pericholecystic inflammatory changes. No adrenal pathology. Bilateral hydronephrosis more on the left and bilateral hydro ureters more on the left. Hydronephrosis secondary to infiltrating neoplasm within the urinary bladder. Enhancing bladder tumor measures 8.5 x 4 x 7.8 cm. The tumor predominantly involving the bladder to the left of the midline. Diverticulosis sigmoid colon without any CT evidence of diverticulitis or abscess. No pneumoperitoneum or intestinal obstruction. IMPRESSION: 1. Nodules both lower lobes indicating metastatic lung disease. 2. Bladder tumor with bilateral hydronephrosis and hydroureters. 3. Diverticulosis sigmoid colon without any CT evidence of diverticulitis or abscess. Please note that all CT scans at this facility use dose modulation, iterative reconstruction, and/or weight-based dosing when appropriate to reduce radiation dose to as low as reasonably achievable. Dictated by Libby Del Rosario MD @ 02/07/2023 2:33:23 PM (Electronically Signed)
[2023-02-07] MEDS: MORPHINE 30 MG TABLET.ER PO (14:16)
--- NOTE | 2023-02-07 15:10 | ED_ITS ---
HPI - Male Genitourinary General Date Seen: 02/07/23 Chief complaint: Urogenital Problems, Male Stated complaint: From [facility]--passing clots Time Seen by Provider: 02/07/23 09:52 Source: patient and family Mode of arrival: ambulatory Limitations: no limitations History of Present Illness HPI Narrative: Patient is 83-year-old gentleman who has hematuria, was initially seen [facility] and transferred over here with the thought of the hematuria and possible retention, he is able the pass urine, but is passing some clots, this is been going on for the last couple days, he was scheduled for chemotherapy today, he has known bladder cancer, which is metastasized, is followed by Urology Dr. Horace Orr. Denies any abdominal pain, fevers chills or sweats, and otherwise feels good he is here today with his 2 sons. Related Data Home Medications Medication Instructions Recorded Confirmed omeprazole 20 mg capsule,delayed 20 mg PO DAILY 01/12/23 02/02/23 release acetaminophen 500 mg capsule 500 mg PO Q6H PRN 01/16/23 02/02/23 olanzapine 2.5 mg tablet 2.5 mg PO QHS 01/16/23 02/02/23 oxycodone 5 mg tablet 5 mg PO Q6H PRN 01/16/23 02/02/23 sennosides 8.6 mg tablet (senna) 8.6 mg PO BID 01/16/23 02/02/23 lorazepam 0.5 mg tablet 0.5 mg PO QHS PRN 02/02/23 02/02/23 polyethylene glycol 3350 17 4 g PO ONCE PRN 02/02/23 02/02/23 gram/dose oral powder (Miralax) Previous Rx's Medication Instructions Recorded ondansetron HCl 4 mg tablet 4 mg PO TID PRN nausea and 12/23/22 vomiting #10 tabs morphine 30 mg tablet,extended 30 mg PO Q12H long acting pain 01/20/23 release medicine #60 tabs prochlorperazine maleate 5 mg 5 mg PO TID PRN nausea #30 tabs 02/02/23 tablet Allergies Allergy/AdvReac Type Severity Reaction Status Date / Time No Known Allergies Allergy Verified 02/07/23 13:24 Review of Systems Status of ROS: Reports: 10 or more systems reviewed and unremarkable except as noted in History and below PFSH PFSH Social History Smoking Status: Former smoker Do you use any of these nicotine containing products: None Second hand tobacco smoke exposure: Yes How often do you have a drink containing alcohol: monthly or less How often do you have six or more drinks on one occasion: Never AUDIT-C Alcohol total score: 1 Non-prescribed substance use: denies use service: No Exam Narrative: Exam Narrative: On examination he is in no apparent distress he is pleasant alert pupils equal round reactive to light, TMs are normal oropharynx normal chest is clear bilaterally no wheezing crackles noted heart sounds are normal no clicks murmurs or gallops abdomen is soft and a little bit distended, he percusses out solidly at about mid umbilicus to symphysis. Lower extremities are normal normal mint gym male genitalia, or noted circumcised, Bladder scan is done it only shows approximately 26 mL. I then used my point of care ultrasound on him, which showed he had both clots in would looks more solid in the bladder, and the question of tumor arose. I then did a CT scan, pelvic and abdominal which confirmed our suspicion, I was able to speak to Dr. Horace Orr and he said that did a consideration would be for debulking, I also told him that I tried to put a catheter in, but unfortunately has a stricture in we were unable to pass the [address] way for sure and unlikely to pass a regular catheter. He was seen the patient next week, and said if he runs into problems between now on the weekend he is actually on service at [facility] and he should go there. Explained to the patient and the patient's family that we can help him here with the catheter if he does have increased hematuria and retention as I cannot pass a catheter through this area that has stricture. They understood this. I then spoke to Shivani is oncology provider here, and brought her up to speed over a conversation. Const: Vital Signs, click to edit/add: Vital Signs - 24 hr 02/07/23 09:35 Temperature 97.7 F Pulse Rate [Pulse Oximeter] 80 Respiratory Rate 16 Blood Pressure [Ri ght Upper Arm] 161/81 H Pulse Oximetry 97 Oxygen Delivery Me thod Room Air Documenting provider has reviewed patient's vital signs: yes Course Vital Signs Vital signs: Initial Vital Signs Temperature 97.7 F 02/07/23 09:35 Temperature Source Temporal Artery Scan 02/07/23 09:35 Pulse Rate 80 02/07/23 09:35 Pulse Rhythm Regular 02/07/23 09:35 Respiratory Rate 16 02/07/23 09:35 Blood Pressure 161/81 H 02/07/23 09:35 Blood Pressure Mean 107 02/07/23 09:35 Blood Pressure Position Sitting 02/07/23 09:35 Pulse Oximetry 97 02/07/23 09:35 Oxygen Delivery Method Room Air 02/07/23 09:35 Vital Signs Temperature 97.7 F 02/07/23 09:35 Pulse Rate 80 02/07/23 09:35 Respiratory Rate 16 02/07/23 09:35 Blood Pressure 161/81 H 02/07/23 09:35 Pulse Oximetry 97 02/07/23 09:35 Oxygen Delivery Method Room Air 02/07/23 09:35 Temperature 97.7 F 02/07/23 09:35 Pulse Rate 80 02/07/23 09:35 Respiratory Rate 16 02/07/23 09:35 Blood Pressure 161/81 H 02/07/23 09:35 Pulse Oximetry 97 02/07/23 09:35 Oxygen Delivery Method Room Air 02/07/23 09:35 MDM - Male Genitourinary Differential Diagnosis Differential diagnosis: Likely urinary tract infection, priapism, urethritis, epididymitis, prostatitis, acute retention of urine and inguinal hernia Medical Records Attestation: I reviewed the patient's medical records. Lab Data Attestation: I reviewed the patient's lab results. Labs: I reviewed the laboratory results today had been taking today [facility]. He does have anemia but this is chronic, good BUN and creatinine, and electrolytes looked was look normal. Imaging Data CT scan - abdomen: Radiologist's impression: Patient: ALONSO MORELOS Facility:?[facility] Patient ID:?[id number] Site Patient ID:?[id number]. Site :?[id number] Study:?CT Abdomen/Pelvis W/ 91CC [id number]-288-1/28/2023 1:24:18 PM Ordering Physician:Irais Ashby Final Report: INDICATION: Bladder cancer; hematuria; clots. Comparison : None. TECHNIQUE: CT abdomen and pelvis with intravenous contrast; coronal and sagittal reformats. FINDINGS: A 1.8 cm pleural-based necrotic nodule left lower lobe posterior medial; metastatic deposit. Multiple other pulmonary nodules both lung bases. No focal hepatic or splenic pathology. Mild splenomegaly. No pancreatic pathology. Distended gallbladder without any pericholecystic inflammatory changes. No adrenal pathology. Bilateral hydronephrosis more on the left and bilateral hydro ureters more on the left. Hydronephrosis secondary to infiltrating neoplasm within the urinary bladder. Enhancing bladder tumor measures 8.5 x 4 x 7.8 cm. The tumor predominantly involving the bladder to the left of the midline. Diverticulosis sigmoid colon without any CT evidence of diverticulitis or abs cess. No pneumoperitoneum or intestinal obstruction. IMPRESSION: 1. Nodules both lower lobes indicating metastatic lung disease. 2. Bladder tumor with bilateral hydronephrosis and hydroureters. 3. Diverticulosis sigmoid colon without any CT evidence of diverticulitis or abscess. Please note that all CT scans at this facility use dose modulation, iterative reconstruction, and/or weight-based dosing when appropriate to reduce radiation dose to as low as reasonably achievable. Dictated by Libby Del Rosario MD @ 02/07/2023 2:33:23 PM (Electronic Signature) Discharge Plan Discharge Clinical Impression: Bladder cancer metastasized to lung, Anemia, Gross hematuria Patient Disposition: Home w/ Parent or Adult Condition: Stable Additional Instructions: As I discussed with you continue with your chemotherapy, please call the [facility] and schedule that for tomorrow, would also suggest if you have acute urinary retention, then to go to [facility] cause I cannot stick a catheter in without a dilatation process. I discussed with Dr. Horace Durantesy see your urologist, if you do have complication in the next few days he is on service at [facility] this week, and could take care of you there. Otherwise some better plan would be to continue your chemotherapy and follow-up with him next week at her scheduled appointment to discuss options. Prescriptions: No Action olanzapine 2.5 mg tablet 2.5 mg PO QHS sennosides [senna] 8.6 mg tablet 8.6 mg PO BID oxycodone 5 mg tablet 5 mg PO Q6H PRN Hold Instructions: Doesn't take acetaminophen 500 mg capsule 500 mg PO Q6H PRN lorazepam 0.5 mg tablet 0.5 mg PO QHS PRN Hold Instructions: Patient uses olanzapine polyethylene glycol 3350 [Miralax] 17 gram/dose powder 4 g PO ONCE PRN prochlorperazine maleate 5 mg tablet 5 mg PO TID PRN (Reason: nausea) Qty: 30 1RF ondansetron HCl 4 mg tablet 4 mg PO TID PRN (Reason: nausea and vomiting) Qty: 10 0RF omeprazole 20 mg capsule,delayed release(DR/EC) 20 mg PO DAILY morphine 30 mg tablet extended release 30 mg PO Q12H Qty: 60 0RF Follow Up/Referrals: Reginald Daniels MD [Primary Care Provider] - Stand Alone Forms: [facility] Info Inst[facility]
[2023-02-07] MEDS: HEPARIN 500 UNIT/5 ML SYRINGE IVF (15:18)
== END 2023-02-07 15:20 | disposition home or self-care (01) ==
PROVIDERS: Emergency Provider Family Medicine; PCP Family Medicine
DX: R31.0 Gross hematuria (principal); C67.9 Malignant neoplasm of bladder, unspecified; C78.00 Secondary malignant neoplasm of unspecified lung
CPT/HCPCS: 74177; 96374; 96376; 99284; 99285; A9270; J1642; J2270; J7030; Q9967

== ENCOUNTER 2023-02-27 14:00 | Outpatient (RCR) | payer MEDICARE, SELFPAY ==
--- NOTE | 2023-01-19 11:54 | URNOTE ---
REceived request for prior auth. Carboplatin(J9045), Gemcitabine (J9201). Fosaprepitant (J1453) and Palonosetron (J2469) have been approved 01/19/2023-01/20/2024. Auth #[id number] Pegfilgrastim is pending review at this time.
[2023-01-19 12:49] VITALS: BP 144/58; PULSE 84; RESP 16; TEMP 36.2; O2SAT 97
[2023-01-19 13:21] LABS: Basophils Percent Auto 0.5 % (0.0-3.0); Hematocrit 20.1 % (37.0-53.0); Lymphocytes Percent Auto 72.5 % (20-44); Mean Corpuscular HGB Conc 33 gm/dL (32-36); Mean Corpuscular Hemoglobin 33 pg (26-34); Mean Corpuscular Volume 100 fL (80-100); Platelet Count* 122 K/uL (140-440); RDW Coefficient of Variation % 15.6 % (11.5-15.5); Red Blood Count 2.02 m/uL (4.30-5.90)
[2023-01-19 13:23] LABS: Hemoglobin* 6.7 gm/dL (13.5-17.5)
[2023-01-19 13:34] LABS: Albumin* 3.4 g/dL (3.3-5.0); Chloride* 104 mmol/L (96-114); Potassium* 3.8 mmol/L (3.6-5.1); Sodium* 135 mmol/L (135-149)
[2023-01-19 13:36] LABS: Bilirubin Total* 0.4 mg/dL (0.1-1.5); Creatinine* 1.3 mg/dL (0.5-1.5); Estimated Glomerular Filt Rate 55 ml/min
[2023-01-19 13:37] LABS: Alanine Aminotransferase* 34 U/L (4-50); Alkaline Phosphatase* 84 U/L (40-150); Aspartate Amino Transferase* 29 U/L (12-35); Blood Urea Nitrogen* 17 mg/dL (7-30); Calcium* 8.3 mg/dL (8.4-10.6); Carbon Dioxide* 28 mmol/L (20-32); Glucose* 101 mg/dL (60-115)
--- NOTE | 2023-01-19 13:58 | ONC.NURNOTE ---
Patient here for D8 chemotherapy and found to be anemic and neutropenic. Chemotherapy held d/t parameters, and will be rescheduled following his recheck of his labs on Monday. Patient assymptomatic of anemia, sent to home to return tomorrow for transfusion.
--- NOTE | 2023-01-19 17:11 | ONC.NURNOTE ---
Chemotherapy teaching binder reviewed with patient and his son reviewed after hours management, ER for fever over 100.4, chemotherapy schedule reviewed possible side effects of chemotherapy, self care at home reviewed management of constipation with miralax and senna patient moved bowels this am, some solid with some looser understands to cut back on the senna as constipation resolves reviewed consents and KEL questions addressed
[2023-01-19 23:17] LABS: Slide Review Reflex Yes
[2023-01-19 23:18] LABS: Slide Review Acceptable Review (Acceptable)
--- NOTE | 2023-01-20 08:06 | URNOTE ---
Pegfilgrastim has been approved 01/19/2023-11/12/2023. Auth #[id number]
[2023-01-20 09:33] VITALS: BP 175/78; PULSE 97; RESP 16; TEMP 36.7; O2SAT 96
[2023-01-20 09:54] VITALS: BP 175/78; PULSE 97; RESP 16; TEMP 36.7; O2SAT 96
[2023-01-20 10:13] VITALS: BP 149/68; PULSE 90; RESP 16; TEMP 36.8
[2023-01-20 10:54] VITALS: BP 151/73; PULSE 79; RESP 16; TEMP 37.3; O2SAT 96
[2023-01-20 10:58] VITALS: BP 171/84; PULSE 71; RESP 16; TEMP 36.7; O2SAT 97
[2023-01-20] MEDS: 0.9 % SODIUM CHLORIDE 250 ml IV (11:54)
[2023-01-20] MEDS: SODIUM CHLORIDE 0.9 % (FLUSH) 10 ML SYRINGE IVF (11:56)
[2023-01-20] MEDS: HEPARIN 500 UNIT/5 ML SYRINGE IVF (11:56)
[2023-01-20 12:30] VITALS: BP 163/76; PULSE 70; RESP 16; TEMP 37.3; O2SAT 97
--- NOTE | 2023-01-20 12:57 | ONC.NURNOTE ---
steven infusion well. LS clear before and after. heart reg. s1s2.
[2023-01-23 13:00] VITALS: BP 147/80; PULSE 87; RESP 16; TEMP 36.1; O2SAT 99
[2023-01-23 13:03] LABS: Hematocrit 24.4 % (37.0-53.0); Hemoglobin* 8.2 gm/dL (13.5-17.5); Lymphocytes Percent Auto 30.6 % (20-44); Mean Corpuscular HGB Conc 34 gm/dL (32-36); Mean Corpuscular Hemoglobin 33 pg (26-34); Mean Corpuscular Volume 98 fL (80-100); Monocytes Percent Auto 7.1 % (0.0-11.0); Neutrophils Percent Auto 62.3 % (42.0-72.0); Platelet Count* 62 K/uL (140-440); RDW Coefficient of Variation % 15.8 % (11.5-15.5); Red Blood Count 2.48 m/uL (4.30-5.90)
[2023-01-23 13:07] LABS: Slide Review Reflex No
--- NOTE | 2023-01-23 15:13 | ONC.NURNOTE ---
platelets to low for treatment today. Per Dr. Leija pt to have a cbc with diff january 26 and possible treatment. Nicolasa Paris APRN aware.
[2023-01-26 08:45] VITALS: BP 150/69; PULSE 104; RESP 16; TEMP 36.1; O2SAT 97
[2023-01-26 09:04] LABS: Eosinophils Percent Auto 0.3 % (0.0-7.0); Hematocrit 24.5 % (37.0-53.0); Hemoglobin* 8.2 gm/dL (13.5-17.5); Lymphocytes Percent Auto 36.8 % (20-44); Mean Corpuscular HGB Conc 34 gm/dL (32-36); Mean Corpuscular Hemoglobin 34 pg (26-34); Mean Corpuscular Volume 100 fL (80-100); Monocytes Percent Auto 7.9 % (0.0-11.0); Platelet Count* 55 K/uL (140-440); RDW Coefficient of Variation % 17.2 % (11.5-15.5); Red Blood Count 2.45 m/uL (4.30-5.90); White Blood Count* 2.91 K/uL (4.50-11.00)
[2023-01-26 09:08] LABS: Slide Review Reflex No
--- NOTE | 2023-01-26 09:22 | ONC.NURNOTE ---
platelets 55. which is lower. hgb 8.2 as last week. pt asymptomatic. no s/s bleeding. except chronic hematura due to diagnosis. urine is light pink with occ clots. normal for pt. reviewed s/s anemia and low plts. no s/s of anemia. pt to call is s/s. scheduled to see a provider and have a treatment rate reduced next 02/02. Nicolasa Paris APRN aware.
[2023-01-31 13:33] VITALS: BP 148/58; PULSE 87; RESP 16; TEMP 36.2; O2SAT 97
[2023-01-31 13:35] VITALS: BP 128/68; PULSE 94; RESP 16; O2SAT 97
[2023-01-31] MEDS: 0.9 % SODIUM CHLORIDE 1000 ml 1,000 ML IV (14:10)
--- NOTE | 2023-01-31 14:22 | ONC.NURNOTE ---
Pt called today with concerns O2 level 86-88% at home. No c/o sob, cough, or fever. Pt does state he has had ongoing nausea since diagnosis and has vomiting once daily last 3 days. Stock Worker encouraged pt to be evaluated by primary care, however, contract technical writer called [facility] Copeland for pt and no availability until 02/01/23 at 1530. Pt then scheduled to come into our clinic to check VS and nurse eval. Upon arrival pt's vital signs stable. O2 sats 97% on room air, pt brought in own oximeter and that seems to be working properly. Pt c/o poor appetite, trying to drink 6-8 8 oz glasses of water. Pt taking Olanzapine at bedtime daily, also taking compazine prn. Instructed pt to bring in pill bottles on for easy reference. Pt states he does not like the taste of the zofran odt. Encouraged pt to take compazine 30 min prior to meals TID, could try zofran in between doses. Pt states he feels much better after getting IVF, pt then given 1 L NS per standing order.
[2023-01-31] MEDS: HEPARIN 500 UNIT/5 ML SYRINGE IVF (15:24)
[2023-01-31] MEDS: SODIUM CHLORIDE 0.9 % (FLUSH) 10 ML SYRINGE IVF (15:24)
[2023-02-02 10:41] LABS: Eosinophils Percent Auto 2.3 % (0.0-7.0); Hematocrit 24.6 % (37.0-53.0); Lymphocytes Percent Auto 41.1 % (20-44); Mean Corpuscular HGB Conc 32 gm/dL (32-36); Mean Corpuscular Hemoglobin 33 pg (26-34); Mean Corpuscular Volume 103 fL (80-100); Monocytes Percent Auto 10.6 % (0.0-11.0); Platelet Count* 92 K/uL (140-440); RDW Coefficient of Variation % 18.8 % (11.5-15.5); Red Blood Count 2.38 m/uL (4.30-5.90); White Blood Count* 2.63 K/uL (4.50-11.00)
[2023-02-02 10:49] LABS: Hemoglobin* 7.9 gm/dL (13.5-17.5); Slide Review Reflex No
[2023-02-02 11:28] LABS: Albumin* 3.3 g/dL (3.3-5.0); Chloride* 105 mmol/L (96-114); Potassium* 3.9 mmol/L (3.6-5.1); Sodium* 138 mmol/L (135-149)
[2023-02-02 11:30] LABS: Creatinine* 1.6 mg/dL (0.5-1.5); Estimated Glomerular Filt Rate 42 ml/min
[2023-02-02 11:31] LABS: Alanine Aminotransferase* 20 U/L (4-50); Alkaline Phosphatase* 89 U/L (40-150); Aspartate Amino Transferase* 22 U/L (12-35); Bilirubin Total* 0.7 mg/dL (0.1-1.5); Blood Urea Nitrogen* 16 mg/dL (7-30); Carbon Dioxide* 29 mmol/L (20-32); Glucose* 94 mg/dL (60-115); Total Protein* 6.1 g/dL (6.0-8.3)
[2023-02-02 11:32] LABS: Calcium* 8.5 mg/dL (8.4-10.6)
[2023-02-02] MEDS: 0.9 % SODIUM CHLORIDE 500 ML 500 ML IV (12:19)
--- NOTE | 2023-02-02 12:30 | ONC.NURNOTE ---
Was seen in clinic today. See note from them for further assessments.
[2023-02-02] MEDS: dexAMETHasone 12 MG in 0.9 % SODIUM CHLORIDE 100 ml 100 ML 404.8 MG IVPB (12:43)
[2023-02-02] MEDS: ONDANSETRON 2 MG/ML inj 8 MG IV (12:49)
[2023-02-02] MEDS: HEPARIN 500 UNIT/5 ML SYRINGE IVF (13:50)
[2023-02-02] MEDS: SODIUM CHLORIDE 0.9 % (FLUSH) 10 ML SYRINGE IVF (13:50)
[2023-02-07 08:45] LABS: Eosinophils Percent Auto 1.2 % (0.0-7.0); Hematocrit 24.7 % (37.0-53.0); Hemoglobin* 8.1 gm/dL (13.5-17.5); Immature Granulocytes Pct Auto 0.6 %; Lymphocytes Percent Auto 38.2 % (20-44); Mean Corpuscular HGB Conc 33 gm/dL (32-36); Mean Corpuscular Hemoglobin 34 pg (26-34); Mean Corpuscular Volume 103 fL (80-100); Monocytes Percent Auto 9.2 % (0.0-11.0); Neutrophils Percent Auto 50.8 % (42.0-72.0); Platelet Count* 142 K/uL (140-440); RDW Coefficient of Variation % 18.3 % (11.5-15.5); Red Blood Count 2.41 m/uL (4.30-5.90); White Blood Count* 3.27 K/uL (4.50-11.00)
[2023-02-07 08:46] LABS: Slide Review Reflex No
[2023-02-07 08:47] VITALS: BP 172/78; PULSE 74; RESP 16; TEMP 36.2; O2SAT 98
[2023-02-07 08:57] LABS: Albumin* 3.6 g/dL (3.3-5.0); Chloride* 106 mmol/L (96-114); Sodium* 137 mmol/L (135-149)
[2023-02-07 09:00] VITALS: BP 174/68
[2023-02-07 09:00] LABS: Alanine Aminotransferase* 15 U/L (4-50); Alkaline Phosphatase* 85 U/L (40-150); Aspartate Amino Transferase* 18 U/L (12-35); Bilirubin Total* 0.7 mg/dL (0.1-1.5); Blood Urea Nitrogen* 15 mg/dL (7-30); Carbon Dioxide* 27 mmol/L (20-32); Creatinine* 1.2 mg/dL (0.5-1.5); Estimated Glomerular Filt Rate 60 ml/min; Glucose* 97 mg/dL (60-115); Total Protein* 6.3 g/dL (6.0-8.3)
--- NOTE | 2023-02-07 09:30 | ONC.NURNOTE ---
Patient here for his chemotherapy and notes that he is not feeling well today. He c/o 8/10 pain at rest in the pelvic and penile area. He is passing large clots and needs to massage abdomen in order to pass these. He feels that his bladder is being incompletely emptied. After urination he notes that pain is beyond a 10. Patient has not been seen by urology since prior to chemotherapy. Dr. Horn's office in [place] was contacted and they recommend a catheter be placed, followed by a follow up appointment with them in one week. Appointment made for next per their office. Patient brought to ER and report called to [facility]. Patient to return following catheter placement for possible chemotherapy.
[2023-02-08 11:23] VITALS: BP 137/69; PULSE 87; RESP 16; TEMP 36.9; O2SAT 97
[2023-02-08 11:25] LABS: Eosinophils Percent Auto 1.9 % (0.0-7.0); Hematocrit 24.9 % (37.0-53.0); Hemoglobin* 8.1 gm/dL (13.5-17.5); Lymphocytes Percent Auto 43.3 % (20-44); Mean Corpuscular HGB Conc 33 gm/dL (32-36); Mean Corpuscular Hemoglobin 33 pg (26-34); Mean Corpuscular Volume 102 fL (80-100); Monocytes Percent Auto 10.1 % (0.0-11.0); Neutrophils Percent Auto 44.7 % (42.0-72.0); Platelet Count* 160 K/uL (140-440); RDW Coefficient of Variation % 18.1 % (11.5-15.5); Red Blood Count 2.44 m/uL (4.30-5.90); White Blood Count* 2.68 K/uL (4.50-11.00)
[2023-02-08 11:27] LABS: Slide Review Reflex No
[2023-02-08] MEDS: dexAMETHasone 10 MG in 0.9 % SODIUM CHLORIDE 100 ml 100 ML 404 MG IVPB (12:21)
[2023-02-08] MEDS: 0.9 % SODIUM CHLORIDE 1000 ml 1,000 ML IV (12:24)
[2023-02-08] MEDS: PALONOSETRON 0.25 MG/5 ML inj IV (12:24)
[2023-02-14 09:11] LABS: Eosinophils Absolute Auto 0.01 K/uL (0.00-0.50); Eosinophils Percent Auto 0.2 % (0.0-7.0); Hematocrit 25.1 % (37.0-53.0); Hemoglobin* 8.1 gm/dL (13.5-17.5); Immature Granulocytes Abs Auto 0.05 K/uL (0.00-0.30); Immature Granulocytes Pct Auto 0.8 %; Lymphocytes Absolute Auto 1.37 K/uL (0.90-2.90); Lymphocytes Percent Auto 21.9 % (20-44); Mean Corpuscular HGB Conc 32 gm/dL (32-36); Mean Corpuscular Hemoglobin 33 pg (26-34); Mean Corpuscular Volume 103 fL (80-100); Monocytes Percent Auto 5.4 % (0.0-11.0); Neutrophils Percent Auto 71.7 % (42.0-72.0); Platelet Count* 103 K/uL (140-440); Red Blood Count 2.44 m/uL (4.30-5.90); White Blood Count* 6.27 K/uL (4.50-11.00)
[2023-02-14 09:18] LABS: Slide Review Reflex No
[2023-02-14 09:55] VITALS: BP 121/68; PULSE 98; RESP 16; TEMP 36.8; O2SAT 97
[2023-02-14] MEDS: HEPARIN 500 UNIT/5 ML SYRINGE IVF (09:57)
[2023-02-14] MEDS: SODIUM CHLORIDE 0.9 % (FLUSH) 10 ML SYRINGE IVF (09:57)
[2023-02-21] VITALS (10 sets, daily range): BP systolic 152–163; BP diastolic 63–91; PULSE 74–90; RESP 18; TEMP 36.6–36.9; O2SAT 96–99
[2023-02-21 09:23] LABS: Eosinophils Absolute Auto 0.01 K/uL (0.00-0.50); Eosinophils Percent Auto 0.2 % (0.0-7.0); Hematocrit 20.6 % (37.0-53.0); Immature Granulocytes Abs Auto 0.03 K/uL (0.00-0.30); Immature Granulocytes Pct Auto 0.5 %; Lymphocytes Percent Auto 19.3 % (20-44); Mean Corpuscular HGB Conc 32 gm/dL (32-36); Mean Corpuscular Hemoglobin 34 pg (26-34); Mean Corpuscular Volume 106 fL (80-100); Monocytes Percent Auto 5.5 % (0.0-11.0); Neutrophils Percent Auto 74.5 % (42.0-72.0); Platelet Count* 70 K/uL (140-440); RDW Coefficient of Variation % 18.3 % (11.5-15.5); Red Blood Count 1.95 m/uL (4.30-5.90); White Blood Count* 6.16 K/uL (4.50-11.00)
[2023-02-21 09:29] LABS: Hemoglobin* 6.6 gm/dL (13.5-17.5); Slide Review Acceptable Review (Acceptable); Slide Review Reflex Yes
--- NOTE | 2023-02-21 13:30 | PC.NURSE ---
Pt is present at [facility] today for lab work. Dale is scheduled to see Dr. Rosalba Martínez on 02/27/2023 and to have his next chemo treatment on 02/28/2023. Hgb 6.6. Discussed with Dr. Martínez and 2 units of blood w/ Lasix between ordered. Giving one unit of blood today followed by 20 mg IV Lasix. Second unit of blood will be given today (if time) or tomorrow (02/22/2023). In chatting with Dale, he shared that he had a procedure with Dr. Horn last week and he has been passing clots with each void since. He also shares that he is urinating very frequently with a small volume out each time. Dale also shared that Dr. Horn referred him back to Dr. Sellers at [facility] for a nephrostomy tube placement. Seeing as Dale is due for chemo next on 02/28/2023, RN discussed case with Dr. Martínez for guidance re: timing. Dr. Rosalba Martínez would like to see this neph tube placed PRIOR TO NEXT CHEMO. This RN contacted [facility] and was informed that Dr. Sellers has time later this week on at the [facility]. Dale and Randall are aware. [facility] pharmacy scheduler will call Randall today to schedule. RN will fax this note for reference along with the most recent MD note and labs. Kelley Guillermo RN [facility]
[2023-02-21] MEDS: FUROSEMIDE 10 MG/ML inj 20 MG IVP (14:00)
[2023-02-27 14:25] LABS: Basophils Absolute Auto 0.01 K/uL (0.00-0.30); Basophils Percent Auto 0.2 % (0.0-3.0); Eosinophils Absolute Auto 0.02 K/uL (0.00-0.50); Eosinophils Percent Auto 0.4 % (0.0-7.0); Immature Granulocytes Abs Auto 0.05 K/uL (0.00-0.30); Lymphocytes Absolute Auto 1.25 K/uL (0.90-2.90); Lymphocytes Percent Auto 24.9 % (20-44); Mean Corpuscular HGB Conc 33 gm/dL (32-36); Mean Corpuscular Hemoglobin 32 pg (26-34); Mean Corpuscular Volume 96 fL (80-100); Monocytes Percent Auto 9.7 % (0.0-11.0); Neutrophils Absolute Auto 3.21 K/uL (1.7-7.0); Neutrophils Percent Auto 63.8 % (42.0-72.0); Platelet Count* 100 K/uL (140-440); Red Blood Count 2.51 m/uL (4.30-5.90); White Blood Count* 5.03 K/uL (4.50-11.00)
[2023-02-27 14:30] LABS: Hemoglobin* 7.9 gm/dL (13.5-17.5); Slide Review Reflex Yes
[2023-02-27 14:50] LABS: Slide Review Acceptable Review (Acceptable)
[2023-02-27 15:02] LABS: Albumin* 3.7 g/dL (3.3-5.0); Chloride* 102 mmol/L (96-114); Potassium* 4.3 mmol/L (3.6-5.1); Sodium* 134 mmol/L (135-149)
[2023-02-27 15:04] LABS: Creatinine* 1.1 mg/dL (0.5-1.5); Estimated Glomerular Filt Rate 67 ml/min
[2023-02-27 15:05] LABS: Alanine Aminotransferase* 13 U/L (4-50); Alkaline Phosphatase* 79 U/L (40-150); Aspartate Amino Transferase* 17 U/L (12-35); Bilirubin Total* 0.6 mg/dL (0.1-1.5); Blood Urea Nitrogen* 17 mg/dL (7-30); Carbon Dioxide* 26 mmol/L (20-32); Glucose* 115 mg/dL (60-115); Total Protein* 6.3 g/dL (6.0-8.3)
[2023-02-27 15:06] LABS: Calcium* 8.7 mg/dL (8.4-10.6)
== END 2023-04-02 23:59 | disposition home or self-care (01) ==
LOC: CCIC 14:00
PROVIDERS: Clinical Nurse Specialist; Internal Medicine Medical Oncology; PCP Family Medicine; Referring Provider Family Medicine; Visit Provider Internal Medicine Hematology & Oncology
DX: C67.9 Malignant neoplasm of bladder, unspecified (principal); R31.9 Hematuria, unspecified; D75.89 Other specified diseases of blood and blood-forming organs; T45.1X5A Adverse effect of antineoplastic and immunosuppressive drugs, initial encounter; G89.3 Neoplasm related pain (acute) (chronic)
CPT/HCPCS: 36415; 36430; 36591; 80053; 85025; 86850; 86900; 86901; 86922; 96360; 96361; 96372; 96376; 96413; 96417; 99202; 99205; 99211; 99212; 99215; J2506; J1100; J1642; J1940; J2405; J2469; J7030; J7050; J7120; J9045; J9201; P9016

== ENCOUNTER 2023-03-26 20:22 | Outpatient (CLI) | payer MEDICARE, SELFPAY | END 2023-03-26 20:23 | disposition home or self-care (01) | LOC: AMB 03-28 11:50 | PROVIDERS: PCP Family Medicine; Visit Provider Family Medicine | DX: R53.1 Weakness (principal); R52 Pain, unspecified | CPT/HCPCS: A0425; A0433 ==

== ENCOUNTER 2023-03-26 20:57 | Inpatient (IN) | payer MEDICARE, SELFPAY ==
[2023-03-26 21:07] VITALS: BP 163/81; PULSE 99; RESP 18; TEMP 36.9; O2SAT 94; BMI 21.8
--- NOTE | 2023-03-26 21:13 | PC.NURSE ---
Earlier called by hospice MD as pt has been restless despite all meds being given including Haldol. Dr Layton spoke to Dr Maddox who accepted pt for inpt hospice/pain control. 1900 BIBA. EMS report pt has bladder CA and is on hospice with family providing care at home. Pt admitted for pain control. EMS gave 100 mcgs Fentanyl and .5 IV Ativan. BS via ems 167. Initial assessment pt somnolent but arouses to name. Note fentanyl patch right upper shoulder. Left lateral nephrostomy tube intake. Note 20G left AC started by EMS. Also note port on left side of upper chest that is not accessed. Noted blood clot end of penis. Skin all intact.
[2023-03-26 22:05] VITALS: BP 163/81; PULSE 99; RESP 18; TEMP 36.9; O2SAT 94
--- NOTE | 2023-03-26 22:13 | PM.IMHP1 ---
Hospitalist- H&P: HPI History of Present Illness Time Seen by Provider: 21:30 Date Seen: 03/26/23 Chief complaint: Direct Admit Narrative: Jesus Lucio is a 83 year old male with metastatic bladder cancer who has been cared for at home by his family and [facility]. Irene the hospice nurse is here with the son and [id number] today. In the last week he has declined a lot. He has also become more painful and agitated. On 03/21/2023 his fentanyl patch was increased to 50 mcg and it was increased again on 03/24/2023 to 100 mcg. He had been getting morphine fairly regularly about 80 mg a day total and then this morning he was even more painful and agitated for which his daughter have been giving him 20 mg of morphine every hour for the last 12 hours now but he was still agitated. They had also started to use Ativan and given Haldol, but without much effect. Dale has a nephrostomy tube in the left which has been draining clear yellow urine of decreasing amounts lately. He has had a lot of blood clots coming out of his penis and has a known stricture and has previously declined a urinary catheter because of that. Other than some urine in the nephrostomy bag, he has not been making much urine and it is unknown if he has had any urine out from his bladder in the last week. Due to intractable pain and agitation, he is admitted directly to the hospital and came by ambulance. He was given 100 mcg IV fentanyl and 0.5 mg IV Ativan in the ambulance. 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 ?D75.89 - Other specified diseases of blood and blood-forming organs (ICD-10) ?T45.1X5A - Adverse effect of antineoplastic and immunosuppressive drugs, initial encounter (ICD-10) Hematuria ?R31.9 - Hematuria, unspecified (ICD-10) Anemia ?D64.9 - Anemia, unspecified (ICD-10) Pulmonary nodules ?R91.8 - Other nonspecific abnormal finding of lung field (ICD-10) Bladder cancer metastasized to lung ?C67.9 - Malignant neoplasm of bladder, unspecified (ICD-10) ?C78.00 - Secondary malignant neoplasm of unspecified lung (ICD-10) Surgical History (Updated 03/26/23 @ 22:19 by Yudith Maddox MD) Hx of tonsillectomy ?Z90.89 - Acquired absence of other organs (ICD-10) H/O repair of rotator cuff ?Z98.890 - Other specified postprocedural states (ICD-10) H/O shoulder surgery ?Z98.890 - Other specified postprocedural states (ICD-10) Social History (Updated 03/26/23 @ 22:20 by Yudith Maddox MD) Narrative: Hospice at home with his children providing care. Smoking Status: Former smoker Do you use any of these nicotine containing products: None Second hand tobacco smoke exposure: Yes How often do you have a drink containing alcohol: monthly or less How often do you have six or more drinks on one occasion: Never AUDIT-C Alcohol total score: 1 Non-prescribed substance use: denies use service: No Meds Home Medications and Allergies Home Medications Medication Instructions Recorded Confirmed Type omeprazole 20 mg capsule,delayed 20 mg PO DAILY 01/12/23 02/27/23 History release acetaminophen 500 mg capsule 500 mg PO Q6H PRN 01/16/23 02/27/23 History olanzapine 2.5 mg tablet 2.5 mg PO QHS 01/16/23 02/27/23 History sennosides 8.6 mg tablet (senna) 8.6 mg PO BID 01/16/23 02/27/23 History lorazepam 0.5 mg tablet 0.5 mg PO QHS PRN 02/02/23 02/27/23 History polyethylene glycol 3350 17 4 g PO ONCE PRN 02/02/23 02/27/23 History gram/dose oral powder (Miralax) magnesium hydroxide 400 mg/5 mL 5 ml PO ONCE 02/27/23 02/27/23 History oral suspension (Milk of Magnesia) Allergies Allergy/AdvReac Type Severity Reaction Status Date / Time No Known Allergies Allergy Verified 02/27/23 14:08 Exam Narrative: Exam Narrative: General: Asleep. Appears comfortable, but occasionally shifts and moves around in the bed. Thin. HEENT: Normocephalic atraumatic. Mucous membranes are dry. Cardiovascular: Regular rate and rhythm. Chest: No increased work of breathing. Clear to auscultation bilaterally. No crackles or wheezes. Abdomen: Bowel sounds present. Soft, mildly tender diffusely, no firmness. No hepatosplenomegaly or masses. Genitourinary: Left nephrostomy tube draining clear yellow urine. Circumcised male with a clot that is drying out in the meatus. Skin: No jaundice, no pallor, no rashes. Const: Vital Signs, click to edit/add: Vital Signs - 24 hr 03/26/23 21:07 Temperature 98.5 F Pulse Rate [Left P ulse Oximeter] 99 Respiratory Rate 18 Blood Pressure [Ri ght Arm] 163/81 H Pulse Oximetry 94 Oxygen Delivery Me thod Room Air Documenting provider has reviewed patient's vital signs: yes Assessment and Plan Assessment and plan (1) Cancer associated pain: Problem comment: Intractable pain and agitation for which he was unable to stay at home. He is admitted for acute care hospice. His finally comfortable at this time. Bladder scan was completed and does not show a distended bladder. Continue comfort care treatment with fentanyl patch at its current dose, IV that is saline locked so that if needed we can give IV medications. Continue p.r.n. oral morphine, lorazepam, and Haldol. 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
[2023-03-26] MEDS: MORPHINE 10 MG/0.5 ML ORAL SOLN PO (22:47)
[2023-03-26] MEDS: LORazepam 1 MG TABLET PO (22:48)
[2023-03-26 23:00] VITALS: PULSE 97
--- NOTE | 2023-03-26 23:45 | PC.NURSE ---
End of Shift: Patient admitted to 274. Turn and reposition in bed. PRN Morphine and Ativan x1.
[2023-03-27 01:26] VITALS: RESP 18; O2SAT 94
[2023-03-27] MEDS: MORPHINE 10 MG/0.5 ML ORAL SOLN PO ×2 (02:32→05:12)
--- NOTE | 2023-03-27 05:27 | PC.NURSE ---
Shift note: Pt has been calm and sleeping throughout the shift except few occasions when nurse observed patient appears to catch something in the air. PRN Morphine give 2x tonight to improve comfort. Pt unable to communicate. T/R every 2 hours. Pt only had 50ml of urine in the urine bag. Appears comfortable but sedated.
[2023-03-27 07:00] VITALS: RESP 20
[2023-03-27 09:35] VITALS: TEMP 38.1
[2023-03-27] MEDS: ACETAMINOPHEN 650 MG SUPP PR (09:35)
[2023-03-27] MEDS: SODIUM CHLORIDE 0.9 % (FLUSH) 10 ML SYRINGE 5 ML IVF ×2 (09:36→21:20)
--- NOTE | 2023-03-27 12:40 | PC.SOCIAL ---
Discharge planning: Received call from Alis at [facility] stating that the hospice nurse has discussed discharge plans with the family and that they are interested in placement at [facility] on Monday if ready for discharge. Pt is currently receiving home hospice services through [facility] who could also provide services at [facility]. Pt had previously been cared for at home by family. Called [facility] [phone] and spoke with Mary who confirmed they currently have a bed available and stated that information can be faxed if family is interested in placement. The room that is available is a large room which is $530/day plus $27/day for meals. drug abuse social worker to follow up as needed.
--- NOTE | 2023-03-27 12:44 | PM.IMPN1 ---
Progress Note: A&P Assessment and plan (1) Cancer associated pain: Problem details: Continue Roxanol, fentanyl and Ativan Continue with hospice cares per patient previously outlined care goals Status: Acute (2) Bladder cancer metastasized to lung: Problem details: I recommended no catheter or bladder scanning at this point. Status: Chronic (3) Hematuria: Problem details: Gross hematuria with clots, comfort cares Status: Acute Subjective Date Seen: 03/27/23 Interval history: Daily Progress Note - Hospital Medicine Day #: 2 CC: Metastatic bladder cancer, pain crisis, hospice patient OVERNIGHT UPDATES FROM STAFF & MED, LAB, IMAGING UPDATES Patient is much more comfortable admission. He is resting well. He has a nephrostomy tube that is draining concentrated urine. He has blood clots at his urethral meatus without Warner. 163/81. Pulse 97. Respiratory knee. Temp 100.5?. He is on room air and satting 94%. Objective: Resting supine, mouth open. Breathing is nonlabored resp. Mild tachypnea. No furrowing the brow. Vitals: see above Lungs: Clear. Cardiac: S1S2. : Large blood clots extruding from the urethral meatus. Nephrostomy tube draining dark urine. No Warner catheter at this time. Disposition/Potential discharge - Likely to have a natural here verses transferring to retirement for continued hospice care. Tentatively we will plan to transfer him on the morning of 03/29 to [facility] pending bed availability. Total time is 35 minutes with greater than 50% spent in counseling and coordination of care. Exam Const: Vital Signs, click to edit/add: Vital Signs - 24 hr 03/26/23 21:07 03/26/23 22:05 03/26/23 23:00 Temperature 98.5 F 98.5 F Pulse Rate [Left P ulse Oximeter] 99 99 97 Respiratory Rate 18 18 Blood Pressure [Ri ght Arm] 163/81 H 163/81 H Pulse Oximetry 94 94 Oxygen Delivery Me thod Room Air Room Air 03/27/23 01:26 03/27/23 07:00 03/27/23 09:35 Temperature 100.5 F H Pulse Rate [Left P ulse Oximeter] Respiratory Rate 18 20 Blood Pressure [Ri ght Arm] Pulse Oximetry 94 Oxygen Delivery Me thod Room Air
[2023-03-27 15:00] VITALS: RESP 12
--- NOTE | 2023-03-27 18:21 | PC.NURSE ---
Pt arousable touch. Turn and repo Q2H. Pt has been sleeping throughout the day and has appeared comfortable. PRN Tylenol given for a temp of 100.5 per family request. Pt passed large blood clot through urethra. Family at bedside this morning. Pt currently resting and appears comfortable.
[2023-03-27 23:00] VITALS: RESP 12
[2023-03-28] MEDS: MORPHINE 10 MG/0.5 ML ORAL SOLN PO ×4 (02:53→18:29)
--- NOTE | 2023-03-28 06:20 | PC.NURSE ---
Shift note: Pt has been bleeding through the urethral. Brief changed 2x tonight. Nephrostomy tube only drained 50ml of clear urine tonight. T/R every 2 hours. During T/R at 0500, patient opened his eyes and asked where am I. Nurse told pt he is in the hospital. Asked for pain medication after reposition and fell back to sleep. Morphine 10mg given. Sips of water given to wet the mouth. Appears comfortable with intermittent cessation of breathing (apnea).
[2023-03-28 07:45] VITALS: RESP 16
[2023-03-28] MEDS: LORazepam 2 MG/ML inj 1 MG IVP ×4 (09:00→21:34)
[2023-03-28] MEDS: SODIUM CHLORIDE 0.9 % (FLUSH) 10 ML SYRINGE 5 ML IVF ×4 (09:01→21:34)
--- NOTE | 2023-03-28 09:53 | P.IMPN_ITS ---
Progress Note: A&P Assessment and plan (1) Cancer associated pain: Problem details: Continue Roxanol, fentanyl and Ativan Continue with hospice cares per patient previously outlined care goals Status: Acute (2) Bladder cancer metastasized to lung: Problem details: I recommended no catheter or bladder scanning at this point. Status: Chronic (3) Hematuria: Problem details: Gross hematuria with clots, comfort cares Status: Acute Subjective Date Seen: 03/28/23 Interval history: Daily Progress Note - Hospital Medicine Day #: 3 CC: Metastatic bladder cancer, pain crisis, hospice patient OVERNIGHT UPDATES FROM STAFF & MED, LAB, IMAGING UPDATES Patient continues to rest peacefully. He responded to me this morning; stating no pain. He is resting well. He has a nephrostomy tube that is draining concentrated urine. He has blood clots at his urethral meatus without Warner. 163/81. Pulse 97. RR 12. Temp 100.5?. He is on room air and satting 94%. Objective: Resting supine, mouth open. Breathing is nonlabored resp. Mild tachypnea. No furrowing the brow. Vitals: see above Lungs: Clear. Cardiac: S1S2. : Large blood clots extruding from the urethral meatus. Nephrostomy tube draining dark urine. No Warner catheter at this time. Disposition/Potential discharge - Likely to have a natural here verses transferring to nursing home for continued hospice care. Tentatively we will plan to transfer him on the morning of 03/29 to [facility] pending bed availability. Total time is 35 minutes with greater than 50% spent in counseling and coordi nation of care. Exam Const: Vital Signs, click to edit/add: Vital Signs - 24 hr 03/27/23 15:00 03/27/23 23:00 Respiratory Rate 12 12
[2023-03-28] MEDS: fentaNYL 100 MCG/HR PATCH 1 PATCH TRANSDERMA (11:17)
--- NOTE | 2023-03-28 11:20 | PC.SOCIAL ---
Met with pt.'s family who is hoping pt. will pass away in the hospital. They are open to exploring [facility] as a back up option and are aware of the private pay cost. A referral was sent to [facility] and Justin, Director of [facility] was updated.
[2023-03-28 15:00] VITALS: RESP 16
--- NOTE | 2023-03-28 15:22 | PC.SOCIAL ---
Pt. has been accepted to [facility] for tomorrow. volunteer services specialist to follow-up with family on the acceptance and update [facility] in AM.
[2023-03-28 18:20] VITALS: TEMP 38.3
[2023-03-28] MEDS: ACETAMINOPHEN 650 MG SUPP PR (18:20)
--- NOTE | 2023-03-28 18:31 | PC.NURSE ---
PATIENT T&R Q2H AND ORAL CARES FREQUENTLY COMPLETED. PATIENT MINIMALLY RESPONSIVE TO YES/NO QUESTIONS AND OPENS EYES WHEN HIS NAME IS SPOKEN. SCHEDULED ATIVAN IV ADMINISTERED AND PRN ROXANOL ADMINISTERED FOR PAIN. PATIENT NOTED TO BE HOT TO TOUCH AND AXILLARY TEMP CHECKED AND FOUND TO BE 100.9. TYLENOL SUPPOSITORY ADMINISTERED FOR COMFORT. REDDENED AREA NOTED TO COCCYX AND MEPILEX APPLIED. NEPHROSTOMY TUBE TO LEFT FLANK DRAINING DARK TANNER URINE. URINE OUTPUT FOR DAY SHIFT 200ML. PATIENT HAS MODERATE AMOUNT BLOODY OOZING FROM PENIS CONSISTENTLY. NO PO INTAKE. FAMILY IN ROOM INTERMITTENTLY.
[2023-03-28 23:00] VITALS: RESP 16
[2023-03-29] MEDS: LORazepam 2 MG/ML inj 1 MG IVP ×5 (05:07→20:42)
[2023-03-29] MEDS: MORPHINE 10 MG/0.5 ML ORAL SOLN PO ×6 (05:11→19:15)
--- NOTE | 2023-03-29 06:53 | PC.NURSE ---
Shift note: Pt has been sleeping comfortably throughout the shift but with apneic episodes. Ativan and Morphine given to enhance comfort. T/R every 2 hours. Pt continuous to bleed per urethral.
[2023-03-29 08:00] VITALS: RESP 16
[2023-03-29] MEDS: SODIUM CHLORIDE 0.9 % (FLUSH) 10 ML SYRINGE 5 ML IVF (08:47)
[2023-03-29] MEDS: fentaNYL 50 MCG/HR PATCH 1 PATCH TRANSDERMA (10:20)
[2023-03-29 12:00] VITALS: BP 108/65; PULSE 114; RESP 12; TEMP 38.4; O2SAT 74
--- NOTE | 2023-03-29 12:11 | P.IMPN_ITS ---
Progress Note: A&P Assessment and plan (1) Terminal illness, late stage: Problem details: Patient is terminally ill. No longer eating or drinking. Decreased urine output. He is still requiring regular doses of morphine and lorazepam. Would like to increase his fentanyl patch so he is requiring less intermittent dosing. I am concerned that if he is awake he is probably aware of his bladder outlet obstruction pain which was the cause of his admission in the 1st place. Continue in hospital for end of life cares Status: Acute (2) Hematuria: Problem details: Gross hematuria with clots, comfort cares. Likely has bladder outlet obstruction as a significant cause of pain. 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 Status: Chronic Plan Continue to adjust medications for end of life care. Anticipate in the next few days. Time Spent With Patient Total time spent: Total time spent today is 35 minutes, all of that in coordination of care and discussing with other providers and family end of life care. Subjective Date Seen: 03/29/23 Interval history: Jesus Lucio is a 83 year old male with metastatic bladder cancer who has been cared for at home by his family and [facility].? Irene the hospice nurse is here with the son and [id number] today.? In the last week he has declined a lot.? He has also become more painful and agitated.? On 03/21/2023 his fentanyl patch was increased to 50 mcg and it was increased again on 03/24/2023 to 100 mcg.? He had been getting morphine fairly regularly about 80 mg a day total and then this morning he was even more painful and agitated for which his daughter have been giving him 20 mg of morphine every hour for the last 12 hours now but he was still agitated.? They had also started to use Ativan and given Haldol, but without much effect. Dale has a nephrostomy tube in the left which has been draining clear yellow urine of decreasing amounts lately.? He has had a lot of blood clots coming out of his penis and has a known stricture and has previously declined a urinary catheter because of that.? Other than some urine in the nephrostomy bag, he has not been making much urine and it is unknown if he has had any urine out from his bladder in the last week.? Due to intractable pain and agitation, he is admitted directly to the hospital and came by ambulance.? He was given 100 mcg IV fentanyl and 0.5 mg IV Ativan in the ambulance. Hospitalized for inpatient hospice care. Patient is had improvement in pain control with 100 mcg fentanyl patch and regular dosing of morphine and lorazepam. Still having blood clots coming out of his urethra. He is not eating anything and not drinking. Urine output is declining. He has developed a low-grade fever. Exam Narrative: Exam Narrative: He is lying in bed and appears comfortable. He arouses to voice. When I talk to him I do not understand his verbal responses. He does follow simple instructions. Breathing appears unlabored. Const: Vital Signs, click to edit/add: Vital Signs - 24 hr 03/28/23 15:00 03/28/23 18:20 03/28/23 23:00 Temperature 100.9 F H Respiratory Rate 16 16 03/29/23 08:00 Temperature Respiratory Rate 16 Documenting provider has reviewed patient's vital signs: yes
[2023-03-29] MEDS: SODIUM CHLORIDE 0.9 % (FLUSH) 10 ML SYRINGE IVF ×3 (12:38→20:42)
[2023-03-29] MEDS: HEPARIN 500 UNIT/5 ML SYRINGE IVF ×3 (12:38→20:42)
[2023-03-29] MEDS: ACETAMINOPHEN 650 MG SUPP PR (12:39)
--- NOTE | 2023-03-29 14:04 | PC.SOCIAL ---
Discharge planning- Phone call to pt's son to discuss if pt will move to [facility] today. Son was discouraged that pt would be moved as family would like pt to pass away at the hospital. Informed pt's son that this worker will have MD assess and speak with the family on a discharge plan. Phone call to charge nurse and provided update. Charge nurse informs that MD will speak with family and develop a plan. Updated plan from MD is that pt will stay in hospital until Monday. If pt is still with us on Monday the plan will be to move pt to [facility]. Phone call to Mary at [facility] ([phone]) to provide update. Mary informs that pt can admit on Monday if it is needed and asks that [facility] keep [facility] updated. Phone call to Justin at [facility] ([phone]. [phone]) to provide update. Justin informs that a hospice nurse will visit pt in hospital today. Social work will follow up as necessary.
[2023-03-29 21:56] VITALS: BP 121/61; PULSE 108; TEMP 37.1; O2SAT 75
[2023-03-30] MEDS: LORazepam 2 MG/ML inj 1 MG IVP ×8 (00:49→22:25)
[2023-03-30] MEDS: SODIUM CHLORIDE 0.9 % (FLUSH) 10 ML SYRINGE IVF ×2 (00:49→04:45)
[2023-03-30] MEDS: HEPARIN 500 UNIT/5 ML SYRINGE IVF ×5 (00:51→17:05)
--- NOTE | 2023-03-30 05:22 | PC.NURSE ---
[id number] Pt appeared comfortable throughout shift, repositioned q2h as tolerated for comfort.
[2023-03-30 07:00] VITALS: RESP 12
[2023-03-30] MEDS: MORPHINE 10 MG/0.5 ML ORAL SOLN PO ×2 (07:41→12:04)
[2023-03-30 08:00] VITALS: BP 112/67; PULSE 104; PULSE 108; RESP 12; TEMP 36.9; O2SAT 74
[2023-03-30] MEDS: SODIUM CHLORIDE 0.9 % (FLUSH) 10 ML SYRINGE 5 ML IVF ×4 (09:08→22:25)
--- NOTE | 2023-03-30 10:21 | PM.IMPN1 ---
Progress Note: A&P Assessment and plan (1) Terminal illness, late stage: Problem details: Patient is terminally ill. No longer eating or drinking. Decreased urine output. He is still requiring regular doses of morphine and lorazepam. Would like to increase his fentanyl patch so he is requiring less intermittent dosing. I am concerned that if he is awake he is probably aware of his bladder outlet obstruction pain which was the cause of his admission in the 1st place. Continue in hospital for end of life cares. Status: Acute (2) Hematuria: Problem details: Gross hematuria with clots, comfort cares. Likely has bladder outlet obstruction as a significant cause of pain. 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 Status: Chronic Plan Continue in hospital for end of life cares. Anticipate in the next 1 or 2 days. Time Spent With Patient Total time spent: Total time spent today is 20 minutes, all of it in discussing with family and other providers ongoing palliative care Subjective Date Seen: 03/30/23 Interval history: Jesus Lucio is a 83 year old male with metastatic bladder cancer who has been cared for at home by his family and [facility].? Irene the hospice nurse is here with the son and [id number] today.? In the last week he has declined a lot.? He has also become more painful and agitated.? On 03/21/2023 his fentanyl patch was increased to 50 mcg and it was increased again on 03/24/2023 to 100 mcg.? He had been getting morphine fairly regularly about 80 mg a day total and then this morning he was even more painful and agitated for which his daughter have been giving him 20 mg of morphine every hour for the last 12 hours now but he was still agitated.? They had also started to use Ativan and given Haldol, but without much effect. Dale has a nephrostomy tube in the left which has been draining clear yellow urine of decreasing amounts lately.? He has had a lot of blood clots coming out of his penis and has a known stricture and has previously declined a urinary catheter because of that.? Other than some urine in the nephrostomy bag, he has not been making much urine and it is unknown if he has had any urine out from his bladder in the last week.? Due to intractable pain and agitation, he is admitted directly to the hospital and came by ambulance.? He was given 100 mcg IV fentanyl and 0.5 mg IV Ativan in the ambulance. Hospitalized for inpatient hospice care. Patient was having bladder area pain thought due to obstruction of his bladder outlet from blood clots. Patient is had improvement in pain control with 100 mcg fentanyl patch and regular dosing of morphine and lorazepam. Still having blood clots coming out of his urethra. He is not eating anything and not drinking. Urine output is declining. He has developed a low-grade fever. With the increase in his fentanyl patch he is mostly sleeping now. He does briefly arouse and open his eyes. Not indicating any distress. Having apneic spells. Exam Narrative: Exam Narrative: He is sleeping and does not arouse to touch or voice today. Breathing is observed to be fluctuating between is period of of apnea and periods of hyperventilation. Upper extremities are still warm to touch with good peripheral circulation. Const: Vital Signs, click to edit/add: Vital Signs - 24 hr 03/29/23 12:00 03/29/23 21:56 03/30/23 07:00 Temperature 101.2 F H 98.8 F Pulse Rate [Left P ulse Oximeter] 114 H Pulse Rate [Left R adial] 108 H Respiratory Rate 12 12 Blood Pressure [Ri ght Arm] 108/65 121/61 Pulse Oximetry 74 L 75 L Oxygen Delivery Me thod Room Air Room Air 03/30/23 08:00 Temperature 98.4 F Pulse Rate [Left P ulse Oximeter] 104 H Pulse Rate [Left R adial] 108 H Respiratory Rate 12 Blood Pressure [Ri ght Arm] 112/67 Pulse Oximetry 74 L Oxygen Delivery Me thod Room Air Documenting provider has reviewed patient's vital signs: yes
[2023-03-30] MEDS: ACETAMINOPHEN 650 MG SUPP PR (12:31)
--- NOTE | 2023-03-30 14:59 | PC.NURSE ---
Patient non responsive, did briefly open eyes when face washed. Appears comfortable with prn morphine use. No agitation or anxiety noted. Temp increased to 101.8, prn tylenol suppository administered with effective results seen at 1420 with temp at 99.2. Repositioned for comfort. Breathing shallow with periods of apnea lasting 30-45 seconds followed by period of tachypnea. Family bedside and appear to be coping well with current prognosis.
[2023-03-30 15:00] VITALS: PULSE 95; RESP 12
[2023-03-30] MEDS: 0.9 % SODIUM CHLORIDE 1000 ml 1,000 ML 20 ML IV (19:26)
--- NOTE | 2023-03-30 19:30 | PC.NURSE ---
T&R q1-2 hours. Patient having 30-45 second episodes of apnea. Decreased output in nephrostomy tube. Continues to have moderate amount bloody output from penis. No PO intake but oral cares provide q1-2 hours.
[2023-03-30 23:00] VITALS: RESP 11
[2023-03-31] MEDS: LORazepam 2 MG/ML inj 1 MG IVP ×4 (02:17→16:39)
[2023-03-31] MEDS: 0.9 % SODIUM CHLORIDE 1000 ml 1,000 ML 20 ML IV (05:48)
[2023-03-31 07:00] VITALS: PULSE 144; RESP 12; O2SAT 82
--- NOTE | 2023-03-31 07:35 | PC.NURSE ---
T&R, tolerates well, no moaning or signs of discomfort. Eyes do not open with repos. 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 Several apneic episodes noted, lasting 30-40 seconds. Brief changed as needed, blood noted to be coming from penis.
[2023-03-31] MEDS: MORPHINE 10 MG/0.5 ML ORAL SOLN PO ×6 (07:53→23:51)
--- NOTE | 2023-03-31 09:02 | PC.SOCIAL ---
Updated [facility] and [facility] that pt. will remain here today, per physician will likely pass.
[2023-03-31] MEDS: HEPARIN 500 UNIT/5 ML SYRINGE IVF ×2 (10:34→16:39)
[2023-03-31] MEDS: fentaNYL 100 MCG/HR PATCH 1 PATCH TRANSDERMA (10:44)
[2023-03-31 16:19] VITALS: TEMP 37.8
[2023-03-31] MEDS: ACETAMINOPHEN 650 MG SUPP PR (16:19)
--- NOTE | 2023-03-31 16:20 | PM.IMPN1 ---
Progress Note: A&P Assessment and plan (1) Terminal illness, late stage: Problem details: Patient is terminally ill. No longer eating or drinking. Minimal food in the last 3 weeks. Stop drinking 5 days ago. Minimal urine output. He is requiring if fewer doses of morphine and lorazepam. Fentanyl patches now up to 150 mcg. Continue p.r.n. Roxanol and Ativan. Anticipate in the next 1-2 days. Status: Acute (2) Hematuria: Problem details: Gross hematuria with clots, comfort cares. Likely has bladder outlet obstruction as a significant cause of pain. 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 Status: Chronic Plan Continue in hospital for end of life cares Time Spent With Patient Total time spent: Total time spent today is 15 minutes, all of it with family and other providers discussing end of life cares Subjective Date Seen: 03/31/23 Interval history: Jesus Lucio is a 83 year old male with metastatic bladder cancer who has been cared for at home by his family and [facility].? Irene the hospice nurse is here with the son and [id number] today.? In the last week he has declined a lot.? He has also become more painful and agitated.? On 03/21/2023 his fentanyl patch was increased to 50 mcg and it was increased again on 03/24/2023 to 100 mcg.? He had been getting morphine fairly regularly about 80 mg a day total and then this morning he was even more painful and agitated for which his daughter have been giving him 20 mg of morphine every hour for the last 12 hours now but he was still agitated.? They had also started to use Ativan and given Haldol, but without much effect. Dale has a nephrostomy tube in the left which has been draining clear yellow urine of decreasing amounts lately.? He has had a lot of blood clots coming out of his penis and has a known stricture and has previously declined a urinary catheter because of that.? Other than some urine in the nephrostomy bag, he has not been making much urine and it is unknown if he has had any urine out from his bladder in the last week.? Due to intractable pain and agitation, he is admitted directly to the hospital and came by ambulance.? He was given 100 mcg IV fentanyl and 0.5 mg IV Ativan in the ambulance. Hospitalized for inpatient hospice care. Patient was having bladder area pain thought due to obstruction of his bladder outlet from blood clots. Patient is had improvement in pain control with 100 mcg fentanyl patch and regular dosing of morphine and lorazepam. Still having blood clots coming out of his urethra. He is not eating anything and not drinking. Urine output is declining. He has developed a low-grade fever. With the increase in his fentanyl patch he is mostly sleeping now. He does briefly arouse and open his eyes. Not indicating any distress. Having apneic spells. Exam Narrative: Exam Narrative: Patient is unarousable. Breathing is a little more regular. Pulse is weaker and faster. He is still warm to touch in his hands. Const: Vital Signs, click to edit/add: Vital Signs - 24 hr 03/30/23 23:00 03/31/23 07:00 03/31/23 07:00 Pulse Rate [Left P ulse Oximeter] 144 H Respiratory Rate 11 L 12 12 Pulse Oximetry 82 L Oxygen Delivery Me thod Room Air Documenting provider has reviewed patient's vital signs: yes
--- NOTE | 2023-03-31 18:40 | PC.NURSE ---
Pt turn and repo Q2H. PRN Ativan and morphine given for comfort. 20-30 seconds of apnea noted frequently. Changed brief as needed from noted blood coming from penis. Family at bedside.
[2023-03-31] MEDS: SODIUM CHLORIDE 0.9 % (FLUSH) 10 ML SYRINGE 5 ML IVF (21:24)
[2023-04-01] MEDS: MORPHINE 10 MG/0.5 ML ORAL SOLN PO ×7 (01:27→23:20)
--- NOTE | 2023-04-01 05:29 | PC.NURSE ---
END OF SHIFT NOTE: PT ON COMFORT CARES. UNRESPONSIVE TO TALK. FACIAL GRIMACE TO REPOSITIONING. EPISODES OF APNEA LASTING 20-30 SEC. BRIEF CHANGED PRN D/T BLEEDING FROM PENIS. LOW OUTPUT FROM NEPHROSTOMY TUBE. MEPILEX ON SACRUM. ? RATTLE? AUDIBLE.?PT WITH BED ALARM ON AND CALL LIGHT WITHIN PT?S REACH.
[2023-04-01] MEDS: LORazepam 2 MG/ML inj 1 MG IVP (09:46)
[2023-04-01] MEDS: SODIUM CHLORIDE 0.9 % (FLUSH) 10 ML SYRINGE 5 ML IVF ×2 (09:46→23:19)
[2023-04-01] MEDS: HEPARIN 500 UNIT/5 ML SYRINGE IVF (09:47)
[2023-04-01] MEDS: fentaNYL 50 MCG/HR PATCH 1 PATCH TRANSDERMA (09:48)
--- NOTE | 2023-04-01 14:45 | P.IMPN_ITS ---
Progress Note: A&P Assessment and plan (1) Terminal illness, late stage: Problem details: Patient is terminally ill. No longer eating or drinking. Minimal food in the last 3 weeks. Stop drinking 5 days ago. Minimal urine output. He is requiring if fewer doses of morphine and lorazepam. Fentanyl patches now up to 150 mcg. Continue p.r.n. Roxanol and Ativan. Anticipate in the next 1-2 days. Status: Acute (2) Hematuria: Problem details: Gross hematuria with clots, comfort cares. Likely has bladder outlet obstruction as a significant cause of pain. 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 Status: Chronic Subjective Date Seen: 04/01/23 Interval history: Day #: 7 CC:? Metastatic bladder cancer, terminal care OVERNIGHT UPDATES FROM STAFF & MED, LAB, IMAGING UPDATES Patient continues to rest peacefully. He has a nephrostomy tube that is draining small amounts of concentrated urine.? Last vitals were yesterday around 4:00 p.m.. Blood pressure 112/67. Pulse 144. Respirations 12. 100? F. O2 sat 82% on room air. Objective:? Resting supine, mouth open.? Breathing is nonlabored resp.? Mild tachypnea.? No furrowing the brow. Vitals: see above Lungs: Clear. Cardiac: S1S2. :? blood clots extruding from the urethral meatus.? Nephrostomy tube draining dark urine.? No Warner catheter at this time. Disposition/Potential discharge - Likely to have a natural here verses transferring to [facility] for continued hospice care.? Tentatively we will plan to transfer him on the morning of 03/[address] [facility] pending bed availability. Total time is 35 minutes with greater than 50% spent in counseling and coordination of care. Exam Const: Vital Signs, click to edit/add: Vital Signs - 24 hr 03/31/23 16:19 Temperature 100.0 F H
--- NOTE | 2023-04-01 19:09 | PC.NURSE ---
Turn and repo q2h. Morphine and Ativan given for comfort. Brief changed, noted blood coming from penis. Family at bedside throughout the day.
--- NOTE | 2023-04-02 02:04 | W.PM.CROSSCO ---
Assessment and Plan Assessment and plan (1) Terminal illness, late stage: Problem comment: Patient is terminally ill. No longer eating or drinking. Minimal food in the last 3 weeks. Stop drinking 5 days ago. Minimal urine output. He is requiring if fewer doses of morphine and lorazepam. Fentanyl patches now up to 150 mcg. Continue p.r.n. Roxanol and Ativan. Anticipate in the next 1-2 days. 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 Status: Chronic Plan eHospitalist Note. Admitted for hospice. RN reporting at at 0136.
--- NOTE | 2023-04-02 04:42 | PC.NURSE ---
Addendum entered by Isamar Dove RN 04/02/23 05:01: [facility] DEPARTED @2595 Original Note: END OF SHIFT NOTE: HOSPICE PT RECEIVING END OF LIFE CARES. PT UNRESPONSIVE TO VOICE, TOUCH AND PAIN. PT SKIN PALE, WARM AND DIAPHORETIC. TURN AND REPOSITIONED Q2H. PRN MORPHINE ADMINISTERED FOR PT COMFORT. BED ALARM ON. PT @0136. [facility], [facility]TEJINDER LOPEZ RN AND DR. JOHNSON, [facility], FAMILY-[facility], [facility] ALL NOTIFIED. ALL PATCHES REMOVED AND DISCARDED APPROPRIATELY. PORT DEACCESSED. PT FAMILY VISITED APPROXIMATELY ONE HR. [facility] DEPARTED WITH BODY @5176.
== END 2023-04-02 05:07 | disposition expired | DRG 687 ==
PROVIDERS: Admitting Provider Family Medicine; PCP Family Medicine; Visit Provider Family Medicine
DX: C67.9 Malignant neoplasm of bladder, unspecified (principal); C78.01 Secondary malignant neoplasm of right lung; C78.02 Secondary malignant neoplasm of left lung; G89.3 Neoplasm related pain (acute) (chronic); R45.1 Restlessness and agitation; N32.0 Bladder-neck obstruction; R31.0 Gross hematuria; Z93.6 Other artificial openings of urinary tract status; I10 Essential (primary) hypertension; Z87.891 Personal history of nicotine dependence
CPT/HCPCS: A9270; J1642; J2060; J7030